=== PATIENT | female | born 1950 | race Caucasian/White ===

== ENCOUNTER 2018-10-01 19:32 | Outpatient (CLI) | payer MEDICARE, OTHER | END 2018-10-01 19:33 | disposition critical access hospital (66) | LOC: EMS 19:32 | PROVIDERS: ATTEND Surgery | DX: R13.10 Dysphagia, unspecified (principal) | CPT/HCPCS: A0425; A0427 ==

== ENCOUNTER 2018-10-01 19:59 | Emergency (ER) | payer MEDICARE, OTHER ==
[2018-10-01] MEDS ORDERED: SODIUM CHLORIDE 0.9% 1,000 ML IV ONE (20:42)
[2018-10-01] MEDS ORDERED: FAMOTIDINE 20 MG/2 ML VIAL IVP STA (20:42)
[2018-10-01] MEDS ORDERED: CETIRIZINE 10 MG TABLET PO STA (20:42)
[2018-10-01] MEDS ORDERED: FAMOTIDINE 20 MG/2 ML VIAL ONE (21:25)
[2018-10-01] MEDS ORDERED: diphenhydrAMINE INJ 50 MG/ML VIAL IVP STA (22:01)
--- NOTE | 2018-10-01 22:11 | ED Physician Documentation ---
PD HPI DYSPNEA - Stated complaint Stated Complaint: ALLERGIC REACTION - Chief complaint Chief Complaint: Allergic Rx - History obtained from History obtained from: Patient, EMS - History of Present Illness Timing - onset: How many minutes ago (30) Timing - onset during: Eating (She just started eating a pot sticker at [facility] restaurant in [place] and noted onset of tingling and swelling in her lips and mouth. She felt a little bit lightheaded. She started to feel some shortness of breath. 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 She was not aware of sesame in the pot stickers at that restaurant. EMS was called. She had increasing amounts of swelling in her lips and so used her EpiPen that she carries with her. EMS arrived and also gave her Benadryl and steroids. En route she is feeling slowly improving. She arise stating her swelling has improved by half or so. 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 denies: Cough GI: reports: Nausea. denies: Abdominal Pain, Vomiting, Diarrhea : denies: Dysuria, Frequency Neurologic: reports: Near syncope. denies: Focal weakness PD PAST MEDICAL HISTORY - Past Medical History Past Medical History: Yes Cardiovascular: Hypertension Respiratory: None Neuro: Migraines Endocrine/Autoimmune: None GI: GERD DOPE EDGER: None : None Psych: None Musculoskeletal: Osteoarthritis Derm: None - Past Surgical History Past Surgical History: Yes General: Hiatal hernia repair Ortho: Carpal Tunnel surgery /DOPE EDGER: section, Hysterectomy - Present Medications Home Medications: Ambulatory Orders Medication Instructions Recorded Confirmed Amitriptyline [Elavil] 100 mg PO HS 10/26/13 10/25/14 Cetirizine [ZyrTEC] 10 mg PO BID 10/26/13 10/25/14 Esomeprazole Magnesium [Nexium] 40 mg PO BID 10/26/13 10/25/14 Magnesium l-Lactate [Mag-Tab Sr] 500 mg PO BID 10/26/13 10/25/14 Topiramate 100 mg PO BID 10/26/13 10/25/14 Zolmitriptan [Zomig] 5 mg PO DAILY 10/26/13 10/25/14 Alprazolam [Xanax] 1 mg PO ONCE PRN 06/12/14 10/25/14 Butalbital/Aspirin/Caffeine 1 tab PO PRN 06/12/14 10/25/14 [Fiorinal 50-325-40 mg Capsule] Sumatriptan Inj [Imitrex Inj] 6 mg INJ PRN 06/12/14 10/25/14 Metoprolol Tartrate [Lopressor] 50 mg PO DAILY #10 tablet 10/25/14 hydroCHLOROthiazide 12.5 mg PO DAILY 10/25/14 10/25/14 [Hydrochlorothiazide] predniSONE [Deltasone] 40 mg PO DAILY 3 Days tablet 10/25/14 raNITIdine [Zantac] 150 mg PO DAILY 10/25/14 10/25/14 Albuterol Sulf [Ventolin Hfa 02/12/18 Inhaler] Amitriptyline HCl 100 mg PO 02/12/18 Atorvastatin Calcium 02/12/18 EPINEPHrine [Epipen 2-Haroon] 02/12/18 Fluticasone [Flonase] 02/12/18 02/12/18 Loratadine [Claritin] 02/12/18 Metoprolol Tartrate 02/12/18 Pantoprazole [Protonix] 02/12/18 SUMAtriptan [Imitrex] 02/12/18 Topiramate 02/12/18 amLODIPine [Norvasc] 02/12/18 raNITIdine [Zantac] 02/12/18 Cetirizine [ZyrTEC] 10 mg PO DAILY #15 tablet 10/01/18 Dexamethasone [Decadron] 4 mg PO DAILY #5 tablet 10/01/18 EPINEPHrine [Epinephrine] 0.3 mg IJ ONCE PRN #2 auto.injct 10/01/18 Famotidine 20 mg PO BID #20 tablet 10/01/18 - Allergies Allergies/Adverse Reactions: Allergies Allergy/AdvReac Type Severity Reaction Status Date / Time cefuroxime axetil * Allergy Severe Hives Verified 05/24/18 14:39 [From Ceftin] ibuprofen [From Motrin] Allergy Severe Hives Verified 05/24/18 14:39 Penicillins Allergy Severe Hives Verified 05/24/18 14:39 losartan potassium * Allergy Intermediate Rash Verified 05/24/18 14:39 [From Cozaar] vancomycin Allergy Intermediate Hives Verified 05/24/18 14:39 avocado Allergy Unknown Verified 10/01/18 20:21 bupropion [From Wellbutrin] Allergy Anxiety Verified 05/24/18 14:39 cashew nut Allergy Unknown Verified 10/01/18 20:21 cefuroxime [From Ceftin] Allergy Hives Verified 05/24/18 14:39 desipramine Allergy Hives Verified 05/24/18 14:39 hazelnut Allergy Unknown Verified 10/01/18 20:21 indomethacin Allergy Hives Verified 05/24/18 14:39 losartan [From Cozaar] Allergy Hives Verified 05/24/18 14:39 pecan nut Allergy Unknown Verified 10/01/18 20:21 sesame oil Allergy Anaphylaxis Verified 10/01/18 20:21 sesame seed Allergy Anaphylaxis Verified 10/01/18 20:21 bupropion HCl * AdvReac Severe Anxiety Verified 05/24/18 14:39 [From Wellbutrin] - Social History Does the pt smoke?: No Smoking Status: Never smoker Does the pt drink ETOH?: Yes Does the pt have substance abuse?: No - Immunizations Immunizations are current?: Yes - POLST Patient has POLST: No PD ED PE NORMAL - Vitals Vital signs reviewed: Yes - General General: Alert and oriented X 3, No acute distress (She does have some mild swelling of the lower lip and the jowls of the jaw and chin. There is some swelling of the uvula. The tongue does not appear to have swelling. She has a normal voice and is able to swallow. Neck is supple without any adenopathy. Lungs are clear. Heart is regular without a murmur or rub.), Well developed/nourished - Neck Neck: Supple, no meningeal sign, No adenopathy - Cardiac Cardiac: RRR, No murmur - Respiratory Respiratory: Clear bilaterally - Abdomen Abdomen: Soft, Non tender - Derm Derm: Normal color, Warm and dry, No rash - Extremities Extremities: Normal ROM s pain, No edema, No calf tenderness / cord - Neuro Neuro: Alert and oriented X 3, No motor deficit, Normal speech Results - Vitals Vitals: Vital Signs - 24 hr 10/01/18 10/01/18 10/01/18 19:56 21:20 22:16 Temperature 36.8 C Heart Rate 79 79 73 Respiratory 25 H 17 18 Rate Blood Pressure 179/89 H 146/83 H 143/74 H O2 Saturation 100 99 98 Oxygen O2 Source Room air PD MEDICAL DECISION MAKING - ED course Complexity details: re-evaluated patient (She is watched in the ER another couple of hours without any worsening of her swelling. She has a little bit of itch residual and given more Benadryl. She has had plenty of time for the epinephrine to wear off and does not seem to still be having the anaphylactic portion. She is discharged home.), considered differential, d/w patient Departure - Departure Disposition: Home, Self Care Clinical Impression: Anaphylaxis due to food Qualifiers: Encounter type: initial encounter Qualified Code(s): T78.00XA - Anaphylactic reaction due to unspecified food, initial encounter Condition: Stable Record reviewed to determine appropriate education?: Yes Instructions: ED Allergic React Food Follow-Up: SUGEY CHAUDHRY MD [Primary Care Provider] - Prescriptions: Cetirizine [ZyrTEC] 10 mg PO DAILY #15 tablet Dexamethasone [Decadron] 4 mg PO DAILY #5 tablet EPINEPHrine [Epinephrine] 0.3 mg IJ ONCE PRN #2 auto.injct PRN Reason: Anaphylaxis Famotidine 20 mg PO BID #20 tablet Comments: Stay well-hydrated at home. Continue Decadron steroid for a few days. Continue long-acting antihistamines with famotidine for stomach and cetirizine for skin daily for a few days. Add Benadryl if needed. I wrote refill prescriptions for your EpiPen. Discharge Date/Time: 10/01/18 22:41
[2018-10-01 22:17] VITALS: BP 143/74
== END 2018-10-01 22:41 | disposition home or self-care (01) ==
LOC: EDUNIT# → ED 19:59
DX: T78.09XA Anaphylactic reaction due to other food products, initial encounter (principal); Z91.018 Allergy to other foods; I10 Essential (primary) hypertension
CPT/HCPCS: 96361; 96374; 96375; 99283; A9270; J1200

== ENCOUNTER 2019-03-23 07:45 | Emergency (ER) | payer MEDICARE, OTHER ==
[2019-03-23] MEDS ORDERED: IPRATROPIUM/ALBUTEROL 3 ML NEB INH STA (08:24)
[2019-03-23] MEDS ORDERED: ONDANSETRON ODT 4 MG TABLET TL STA (08:25)
[2019-03-23] MEDS ORDERED: predniSONE 20 MG TABLET PO STA (08:25)
[2019-03-23] MEDS ORDERED: BUTALB/ACETAM/CAFF 50/325/40MG TABLET PO STA (08:25)
--- NOTE | 2019-03-23 08:37 | ED Physician Documentation ---
History of Present Illness - Stated complaint Stated Complaint: COUGH/VOMITING - Chief complaint Chief Complaint: Resp - History obtained from History obtained from: Patient, Family - History of Present Illness Timing: How many weeks ago (2) Pain level max: 5 Pain level now: 4 - Additonal information Additional information: 68-year-old female presents to the emergency department with coughing for the past 2 weeks. Saw her PCP and was placed on azithromycin 3 days ago. States she is not improving. No fevers. Clear sputum production. She does have an albuterol inhaler but no spacer. She does not smoke. She states she has had audible wheezing at home. Is not on steroids. Worse with lying down on ex ertion. Better sitting up. Review of Systems Constitutional: denies: Fever, Chills Nose: reports: Rhinorrhea / runny nose, Congestion Throat: denies: Sore throat Cardiac: denies: Chest pain / pressure Respiratory: reports: Dyspnea, Cough, Wheezing GI: denies: Abdominal Pain, Nausea, Vomiting, Diarrhea Skin: denies: Rash Musculoskeletal: denies: Neck pain, Back pain Neurologic: denies: Headache PD PAST MEDICAL HISTORY - Past Medical History Cardiovascular: Hypertension Respiratory: None Neuro: Migraines Endocrine/Autoimmune: None GI: GERD FRAMING INSPECTOR: None : None Psych: None Musculoskeletal: Osteoarthritis Derm: None - Past Surgical History Past Surgical History: Yes General: Hiatal hernia repair Ortho: Carpal Tunnel surgery /FRAMING INSPECTOR: section, Hysterectomy - Present Medications Home Medications: Ambulatory Orders Medication Instructions Recorded Confirmed Amitriptyline [Elavil] 100 mg PO HS 10/26/13 10/25/14 Cetirizine [ZyrTEC] 10 mg PO BID 10/26/13 10/25/14 Esomeprazole Magnesium [Nexium] 40 mg PO BID 10/26/13 10/25/14 Magnesium l-Lactate [Mag-Tab Sr] 500 mg PO BID 10/26/13 10/25/14 Topiramate 100 mg PO BID 10/26/13 10/25/14 Zolmitriptan [Zomig] 5 mg PO DAILY 10/26/13 10/25/14 Alprazolam [Xanax] 1 mg PO ONCE PRN 06/12/14 10/25/14 Butalbital/Aspirin/Caffeine 1 tab PO PRN 06/12/14 10/25/14 [Fiorinal 50-325-40 mg Capsule] Sumatriptan Inj [Imitrex Inj] 6 mg INJ PRN 06/12/14 10/25/14 Metoprolol Tartrate [Lopressor] 50 mg PO DAILY #10 tablet 10/25/14 hydroCHLOROthiazide 12.5 mg PO DAILY 10/25/14 10/25/14 [Hydrochlorothiazide] predniSONE [Deltasone] 40 mg PO DAILY 3 Days tablet 10/25/14 raNITIdine [Zantac] 150 mg PO DAILY 10/25/14 10/25/14 Albuterol Sulf [Ventolin Hfa 02/12/18 Inhaler] Amitriptyline HCl 100 mg PO 02/12/18 Atorvastatin Calcium 02/12/18 EPINEPHrine [Epipen 2-Haroon] 02/12/18 Fluticasone [Flonase] 02/12/18 02/12/18 Loratadine [Claritin] 02/12/18 Metoprolol Tartrate 02/12/18 Pantoprazole [Protonix] 02/12/18 SUMAtriptan [Imitrex] 02/12/18 Topiramate 02/12/18 amLODIPine [Norvasc] 02/12/18 raNITIdine [Zantac] 02/12/18 Cetirizine [ZyrTEC] 10 mg PO DAILY #15 tablet 10/01/18 EPINEPHrine [Epinephrine] 0.3 mg IJ ONCE PRN #2 auto.injct 10/01/18 Famotidine 20 mg PO BID #20 tablet 10/01/18 dexAMETHasone [Decadron] 4 mg PO DAILY #5 tablet 10/01/18 Benzonatate [Tessalon Perle] 100 - 200 mg PO TID PRN #30 capsule 03/23/19 Cetirizine HCl/Pseudoephedrine 1 each PO BID PRN #30 tab.er.12h 03/23/19 [Zyrtec-D Tablet] predniSONE [Prednisone] 40 mg PO DAILY #10 tablet 03/23/19 - Allergies Allergies/Adverse Reactions: Allergies Allergy/AdvReac Type Severity Reaction Status Date / Time cefuroxime axetil * Allergy Severe Hives Verified 03/23/19 08:02 [From Ceftin] ibuprofen [From Motrin] Allergy Severe Hives Verified 03/23/19 08:02 Penicillins Allergy Severe Hives Verified 03/23/19 08:02 losartan potassium * Allergy Intermediate Rash Verified 03/23/19 08:02 [From Cozaar] vancomycin Allergy Intermediate Hives Verified 03/23/19 08:02 avocado Allergy Unknown Verified 03/23/19 08:02 bupropion [From Wellbutrin] Allergy Anxiety Verified 03/23/19 08:02 cashew nut Allergy Unknown Verified 03/23/19 08:02 cefuroxime [From Ceftin] Allergy Hives Verified 03/23/19 08:02 desipramine Allergy Hives Verified 03/23/19 08:02 hazelnut Allergy Unknown Verified 03/23/19 08:02 indomethacin Allergy Hives Verified 03/23/19 08:02 losartan [From Cozaar] Allergy Hives Verified 03/23/19 08:02 pecan nut Allergy Unknown Verified 03/23/19 08:02 sesame oil Allergy Anaphylaxis Verified 03/23/19 08:02 sesame seed Allergy Anaphylaxis Verified 03/23/19 08:02 bupropion HCl * AdvReac Severe Anxiety Verified 03/23/19 08:02 [From Wellbutrin] - Social History Does the pt smoke?: No Smoking Status: Never smoker Does the pt drink ETOH?: Yes Does the pt have substance abuse?: No - Immunizations Immunizations are current?: Yes - POLST Patient has POLST: No PD ED PE NORMAL - Vitals Vital signs reviewed: Yes - General General: Alert and oriented X 3, No acute distress, Well developed/nourished - HEENT HEENT: PERRL, Ears normal, Moist mucous membranes, Pharynx benign - Neck Neck: Supple, no meningeal sign - Cardiac Cardiac: RRR, Strong equal pulses - Respiratory Respiratory: No respiratory distress, Other (Wheezing and diminished breath sounds bilaterally) - Abdomen Abdomen: Soft, Non tender, Non distended - Derm Derm: Warm and dry, No rash - Extremities Extremities: No edema - Neuro Neuro: Alert and oriented X 3 - Psych Psych: Normal mood, Normal affect Results - Vitals Vitals: Vital Signs - 24 hr 03/23/19 03/23/19 07:58 08:56 Temperature 36.6 C Heart Rate 96 91 Respiratory 18 18 Rate Blood Pressure 146/81 H O2 Saturation 96 Oxygen O2 Source Room air - Rads (name of study) cxr Radiology: Prelim report reviewed, EMP read contemporaneously, See rad report (No acute disease) PD MEDICAL DECISION MAKING - ED course Complexity details: reviewed results, re-evaluated patient, considered differential, d/w patient, d/w family ED course: Patient feels better after nebulizer treatment. No acute findings on chest x- ray. We will stop the azithromycin. Will place on a steroid taper. A spacer was given and teaching performed for her albuterol. She is well-appearing, nontoxic. Afebrile. No hypoxia. Patient counseled regarding signs and symptoms for which I believe and urgent re-evaluation would be necessary. Patient with good understanding of and agreement to plan and is comfortable going home at this time This document was made in part using voice recognition software. While efforts are made to proofread this document, sound alike and grammatical errors may occur. Departure - Departure Disposition: 01 Home, Self Care Clinical Impression: Viral URI with cough Condition: Good Instructions: ED URI Viral W Wheezing Follow-Up: SUGEY CHAUDHRY MD [Primary Care Provider] - Within 1 week Prescriptions: Benzonatate [Tessalon Perle] 100 - 200 mg PO TID PRN #30 capsule PRN Reason: Cough Cetirizine HCl/Pseudoephedrine [Zyrtec-D Tablet] 1 each PO BID PRN #30 tab.er.12h PRN Reason: nasal congestion predniSONE [Prednisone] 40 mg PO DAILY #10 tablet Comments: Use the medications as prescribed. Return if you worsen. Follow-up with your doctor for further evaluation and care. You can stop the azithromycin. Your x- ray does not show any acute abnormalities today.
--- NOTE | 2019-03-23 08:51 | XRAY Report ---
Reason: cough Procedure Date: 03/23/2019 Accession Number: [id number] / [id number] Procedure: XR - Chest 2 View X-Ray CPT Code: 62663 FULL RESULT: EXAM: CHEST RADIOGRAPHY, 2 VIEWS EXAM DATE: 03/23/2019 08:42 AM. CLINICAL HISTORY: 68-year-old female with cough for 3 weeks, with worsening symptoms. COMPARISON: None. TECHNIQUE: Upright PA and lateral views. FINDINGS: Lungs/Pleura: No focal opacities evident. No pleural effusion. No pneumothorax. Normal volumes. Mediastinum: Heart size normal, without adenopathy or pulmonary vascular congestion. Other: Trachea is midline. Osseous structures unremarkable for age. IMPRESSION: Unremarkable chest for age and body size. No pneumonia, CHF or other demonstrated cause for persistent cough. RADIA
[2019-03-23 09:28] VITALS: BP 151/86
[2019-03-23] MEDS ORDERED: KETOROLAC 60 MG/2 ML VIAL IM STA (09:33)
== END 2019-03-23 09:41 | disposition home or self-care (01) ==
LOC: ED 07:45
DX: J06.9 Acute upper respiratory infection, unspecified (principal); I10 Essential (primary) hypertension
CPT/HCPCS: 71046; 94640; 94664; 96372; 99283; A9270; J7512; Q0162

== ENCOUNTER 2019-05-17 11:03 | Emergency (ER) | payer MEDICARE, OTHER ==
--- NOTE | 2019-05-17 11:47 | ED Physician Documentation ---
PD HPI URI - Stated complaint Stated Complaint: SOA/COUGH/CONGESTION - Chief complaint Chief Complaint: Resp - History obtained from History obtained from: Patient - History of Present Illness Timing - onset: How many days ago (4-5 days worse, but has had some cough for about 6 weeks.) Timing duration: Days Timing details: Abrupt onset, Still present Associated symptoms: Fever, Nasal congestion, Productive cough, Dyspnea, Other (she is concerned about mold found in their house and if this could be causing cough.). No: NVD Contributing factors: No: Sick contact, COPD / asthma Similar symptoms before: Has not had sx before Review of Systems Constitutional: reports: Fever Nose: reports: Congestion. denies: Rhinorrhea / runny nose Throat: denies: Sore throat Cardiac: denies: Chest pain / pressure, Palpitations Respiratory: reports: Dyspnea, Cough. 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: None : None Psych: None Musculoskeletal: Osteoarthritis Derm: None - Past Surgical History Past Surgical History: Yes General: Hiatal hernia repair Ortho: Carpal Tunnel surgery /PROFESSOR OF LITERACY: section, Hysterectomy - Present Medications Home Medications: Ambulatory Orders Medication Instructions Recorded Confirmed Amitriptyline [Elavil] 100 mg PO HS 10/26/13 10/25/14 Cetirizine [ZyrTEC] 10 mg PO BID 10/26/13 10/25/14 Esomeprazole Magnesium [Nexium] 40 mg PO BID 10/26/13 10/25/14 Magnesium l-Lactate [Mag-Tab Sr] 500 mg PO BID 10/26/13 10/25/14 Topiramate 100 mg PO BID 10/26/13 10/25/14 Zolmitriptan [Zomig] 5 mg PO DAILY 10/26/13 10/25/14 Alprazolam [Xanax] 1 mg PO ONCE PRN 06/12/14 10/25/14 Butalbital/Aspirin/Caffeine 1 tab PO PRN 06/12/14 10/25/14 [Fiorinal 50-325-40 mg Capsule] Sumatriptan Inj [Imitrex Inj] 6 mg INJ PRN 06/12/14 10/25/14 Metoprolol Tartrate [Lopressor] 50 mg PO DAILY #10 tablet 10/25/14 hydroCHLOROthiazide 12.5 mg PO DAILY 10/25/14 10/25/14 [Hydrochlorothiazide] predniSONE [Deltasone] 40 mg PO DAILY 3 Days tablet 10/25/14 raNITIdine [Zantac] 150 mg PO DAILY 10/25/14 10/25/14 Albuterol Sulf [Ventolin Hfa 02/12/18 Inhaler] Amitriptyline HCl 100 mg PO 02/12/18 Atorvastatin Calcium 02/12/18 EPINEPHrine [Epipen 2-Haroon] 02/12/18 Fluticasone [Flonase] 02/12/18 02/12/18 Loratadine [Claritin] 02/12/18 Metoprolol Tartrate 02/12/18 Pantoprazole [Protonix] 02/12/18 SUMAtriptan [Imitrex] 02/12/18 Topiramate 02/12/18 amLODIPine [Norvasc] 02/12/18 raNITIdine [Zantac] 02/12/18 Cetirizine [ZyrTEC] 10 mg PO DAILY #15 tablet 10/01/18 EPINEPHrine [Epinephrine] 0.3 mg IJ ONCE PRN #2 auto.injct 10/01/18 Famotidine 20 mg PO BID #20 tablet 10/01/18 dexAMETHasone [Decadron] 4 mg PO DAILY #5 tablet 10/01/18 Benzonatate [Tessalon Perle] 100 - 200 mg PO TID PRN #30 capsule 03/23/19 Cetirizine HCl/Pseudoephedrine 1 each PO BID PRN #30 tab.er.12h 03/23/19 [Zyrtec-D Tablet] predniSONE [Prednisone] 40 mg PO DAILY #10 tablet 03/23/19 Albuterol Sulf [Ventolin Hfa 1 - 2 puffs INH Q4HR PRN #1 inhaler 05/17/19 Inhaler] Benzonatate [Tessalon Perle] 100 - 200 mg PO TID PRN #30 capsule 05/17/19 Doxycycline Monohydrate 100 mg PO BID #14 tablet 05/17/19 dexAMETHasone [Decadron] 4 mg PO DAILY #7 tablet 05/17/19 - Allergies Allergies/Adverse Reactions: Allergies Allergy/AdvReac Type Severity Reaction Status Date / Time cefuroxime axetil * Allergy Severe Hives Verified 05/17/19 11:16 [From Ceftin] ibuprofen [From Motrin] Allergy Severe Hives Verified 05/17/19 11:16 Penicillins Allergy Severe Hives Verified 05/17/19 11:16 losartan potassium * Allergy Intermediate Rash Verified 05/17/19 11:16 [From Cozaar] vancomycin Allergy Intermediate Hives Verified 05/17/19 11:16 avocado Allergy Unknown Verified 05/17/19 11:16 cashew nut Allergy Unknown Verified 05/17/19 11:16 desipramine Allergy Hives Verified 05/17/19 11:16 hazelnut Allergy Unknown Verified 05/17/19 11:16 indomethacin Allergy Hives Verified 05/17/19 11:16 losartan [From Cozaar] Allergy Hives Verified 05/17/19 11:16 pecan nut Allergy Unknown Verified 05/17/19 11:16 sesame oil Allergy Anaphylaxis Verified 05/17/19 11:16 sesame seed Allergy Anaphylaxis Verified 05/17/19 11:16 bupropion HCl * AdvReac Severe Anxiety Verified 05/17/19 11:16 [From Wellbutrin] - Social History Does the pt smoke?: No Smoking Status: Never smoker Does the pt drink ETOH?: Yes Does the pt have substance abuse?: No - Immunizations Immunizations are current?: Yes - POLST Patient has POLST: No PD ED PE NORMAL - Vitals Vital signs reviewed: Yes - General General: Alert and oriented X 3, No acute distress, Well developed/nourished - HEENT HEENT: Moist mucous membranes, Pharynx benign - Neck Neck: Supple, no meningeal sign, No adenopathy - Cardiac Cardiac: RRR, No murmur - Respiratory Respiratory: No: Clear bilaterally (wheezing noted siffusely, mild. Some coarse sounds left perihilar. No fine crackles. ) - Derm Derm: Normal color, Warm and dry - Extremities Extremities: No tenderness to palpate, Normal ROM s pain, No edema, No calf tenderness / cord - Neuro Neuro: Alert and oriented X 3, No motor deficit, Normal speech Results - Vitals Vitals: Vital Signs - 24 hr 05/17/19 05/17/19 05/17/19 11:07 12:14 12:38 Temperature 36.6 C Heart Rate 69 59 L 70 Respiratory 20 20 14 Rate Blood Pressure 134/68 H 146/78 H O2 Saturation 100 94 05/17/19 14:19 Temperature Heart Rate 78 Respiratory 14 Rate Blood Pressure 144/82 H O2 Saturation 98 Oxygen O2 Source Room air - Labs Labs: Laboratory Tests 05/17/19 12:05 Influenza A (Rapid) Negative Influenza B (Rapid) Negative - Rads (name of study) chest xray Radiology: Prelim report reviewed (no infiltrates), See rad report PD MEDICAL DECISION MAKING - ED course Complexity details: reviewed results, considered differential, d/w patient Departure - Departure Disposition: 01 Home, Self Care Clinical Impression: Acute bronchitis Qualifiers: Bronchitis organism: unspecified organism Qualified Code(s): J20.9 - Acute bronchitis, unspecified Condition: Stable Record reviewed to determine appropriate education?: Yes Instructions: ED Upper Resp Infec Abx Tx Follow-Up: SUGEY CHAUDHRY MD [Primary Care Provider] - Prescriptions: Albuterol Sulf [Ventolin Hfa Inhaler] 1 - 2 puffs INH Q4HR PRN #1 inhaler PRN Reason: Shortness Of Air/Wheezing Benzonatate [Tessalon Perle] 100 - 200 mg PO TID PRN #30 capsule PRN Reason: Cough dexAMETHasone [Decadron] 4 mg PO DAILY #7 tablet Doxycycline Monohydrate 100 mg PO BID #14 tablet Comments: Continue usual medications. Use your albuterol inhaler 2 puffs 4 times a day regularly for the next 7 to 10 days and added times if needed for cough and wheezing. Decadron steroid for inflammation of the airways daily for a week. Add Tessalon (benzonatate) as needed for cough. This may be a viral illness or possibly bacterial infection instead so given your symptoms will add an antibiotic as well. Doxycycline twice daily for a week. Recheck if not improving well over the next several days; return sooner if worse . Discharge Date/Time: 05/17/19 14:20
[2019-05-17] MEDS ORDERED: CHERRY SYRUP 10 ML UDC PO ONE (12:11)
[2019-05-17] MEDS ORDERED: BENZONATATE 100 MG CAPSULE PO STA (12:11)
[2019-05-17] MEDS ORDERED: KETOROLAC 30 MG/ML VIAL IM STA (12:11)
[2019-05-17] MEDS ORDERED: DEXAMETHASONE 10 MG/ML VIAL PO STA (12:11)
[2019-05-17] MEDS ORDERED: IPRATROPIUM/ALBUTEROL 3 ML NEB INH STA (12:11)
[2019-05-17] MEDS ORDERED: DOXYCYCLINE 100 MG TABLET PO STA (12:14)
--- NOTE | 2019-05-17 12:54 | XRAY Report ---
Reason: cough and congestion/ dyspnea Procedure Date: 05/17/2019 Accession Number: [id number] / [id number] Procedure: XR - Chest 2 View X-Ray CPT Code: 69333 Final Report FULL RESULT: EXAM: CHEST RADIOGRAPHY EXAM DATE: 05/17/2019 12:16 PM. CLINICAL HISTORY: Cough and congestion/ dyspnea. COMPARISON: CHEST 2 VIEW 03/23/2019 8:32 AM. TECHNIQUE: 2 views. FINDINGS: Lungs/Pleura: No new focal lung consolidation or pleural effusions. No pneumothorax. Minimal linear basilar probable atelectasis/scarring. Minimal bronchial wall thickening centrally. Mediastinum: Cardiac silhouette size appears unremarkable. Other: Degenerative change within the spine. IMPRESSION: 1. Minimal bronchial wall thickening centrally, suggesting mild airways disease. 2. No new lobar lung consolidation or pleural effusions. Minimal basilar probable atelectasis/scarring. RADIA
[2019-05-17 14:20] VITALS: BP 144/82
== END 2019-05-17 14:20 | disposition home or self-care (01) ==
LOC: ED 11:03
DX: J20.9 Acute bronchitis, unspecified (principal); I10 Essential (primary) hypertension
CPT/HCPCS: 71046; 87102; 87106; 87206; 87275; 87276; 94640; 96372; 99283; 99284; A9270

== ENCOUNTER 2019-08-05 15:36 | Emergency (ER) | payer MEDICARE, OTHER ==
[2019-08-05] MEDS ORDERED: CLINDAMYCIN 900 MG/50 ML 50 ML IV ONE (15:49)
--- NOTE | 2019-08-05 15:52 | ED Physician Documentation ---
History of Present Illness - Stated complaint Stated Complaint: DOG BITE/L HAND - Chief complaint Chief Complaint: Laceration - History obtained from History obtained from: Patient - History of Present Illness Timing: How many hours ago (10) Pain level max: 3 Pain level now: 2 - Additonal information Additional information: 69-year-old female was bitten in the left hand by a dog this morning. It is her spouse's dog. She noticed redness and swelling to the hand this afternoon. No fevers. There was clear drainage from the wound. Nothing makes it better or worse. Tetanus is up-to-date. Patient is right-handed. The dog is up-to-date on its immunizations as well. 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 : None Psych: None Musculoskeletal: Osteoarthritis Derm: None - Past Surgical History Past Surgical History: Yes General: Hiatal hernia repair Ortho: Carpal Tunnel surgery /FARMWORKER PULLET FARM: section, Hysterectomy - Present Medications Home Medications: Ambulatory Orders Medication Instructions Recorded Confirmed Amitriptyline [Elavil] 100 mg PO HS 10/26/13 10/25/14 Cetirizine [ZyrTEC] 10 mg PO BID 10/26/13 10/25/14 Esomeprazole Magnesium [Nexium] 40 mg PO BID 10/26/13 10/25/14 Magnesium l-Lactate [Mag-Tab Sr] 500 mg PO BID 10/26/13 10/25/14 Topiramate 100 mg PO BID 10/26/13 10/25/14 Zolmitriptan [Zomig] 5 mg PO DAILY 10/26/13 10/25/14 Alprazolam [Xanax] 1 mg PO ONCE PRN 06/12/14 10/25/14 Butalbital/Aspirin/Caffeine 1 tab PO PRN 06/12/14 10/25/14 [Fiorinal 50-325-40 mg Capsule] Sumatriptan Inj [Imitrex Inj] 6 mg INJ PRN 06/12/14 10/25/14 Metoprolol Tartrate [Lopressor] 50 mg PO DAILY #10 tablet 10/25/14 hydroCHLOROthiazide 12.5 mg PO DAILY 10/25/14 10/25/14 [Hydrochlorothiazide] predniSONE [Deltasone] 40 mg PO DAILY 3 Days tablet 10/25/14 raNITIdine [Zantac] 150 mg PO DAILY 10/25/14 10/25/14 Albuterol Sulf [Ventolin Hfa 02/12/18 Inhaler] Amitriptyline HCl 100 mg PO 02/12/18 Atorvastatin Calcium 02/12/18 EPINEPHrine [Epipen 2-Haroon] 02/12/18 Fluticasone [Flonase] 02/12/18 02/12/18 Loratadine [Claritin] 02/12/18 Metoprolol Tartrate 02/12/18 Pantoprazole [Protonix] 02/12/18 SUMAtriptan [Imitrex] 02/12/18 Topiramate 02/12/18 amLODIPine [Norvasc] 02/12/18 raNITIdine [Zantac] 02/12/18 Cetirizine [ZyrTEC] 10 mg PO DAILY #15 tablet 10/01/18 EPINEPHrine [Epinephrine] 0.3 mg IJ ONCE PRN #2 auto.injct 10/01/18 Famotidine 20 mg PO BID #20 tablet 10/01/18 dexAMETHasone [Decadron] 4 mg PO DAILY #5 tablet 10/01/18 Benzonatate [Tessalon Perle] 100 - 200 mg PO TID PRN #30 capsule 03/23/19 Cetirizine HCl/Pseudoephedrine 1 each PO BID PRN #30 tab.er.12h 03/23/19 [Zyrtec-D Tablet] predniSONE [Prednisone] 40 mg PO DAILY #10 tablet 03/23/19 Albuterol Sulf [Ventolin Hfa 1 - 2 puffs INH Q4HR PRN #1 inhaler 05/17/19 Inhaler] Benzonatate [Tessalon Perle] 100 - 200 mg PO TID PRN #30 capsule 05/17/19 Doxycycline Monohydrate 100 mg PO BID #14 tablet 05/17/19 dexAMETHasone [Decadron] 4 mg PO DAILY #7 tablet 05/17/19 Clindamycin HCl [Clindamycin 300MG 300 mg PO Q6H #40 capsule 08/05/19 CAP] - Allergies Allergies/Adverse Reactions: Allergies Allergy/AdvReac Type Severity Reaction Status Date / Time cefuroxime axetil * Allergy Severe Hives Verified 05/17/19 11:16 [From Ceftin] ibuprofen [From Motrin] Allergy Severe Hives Verified 05/17/19 11:16 Penicillins Allergy Severe Hives Verified 05/17/19 11:16 losartan potassium * Allergy Intermediate Rash Verified 05/17/19 11:16 [From Cozaar] vancomycin Allergy Intermediate Hives Verified 05/17/19 11:16 avocado Allergy Unknown Verified 08/05/19 15:39 cashew nut Allergy Unknown Verified 08/05/19 15:39 desipramine Allergy Hives Verified 08/05/19 15:39 hazelnut Allergy Unknown Verified 08/05/19 15:39 indomethacin Allergy Hives Verified 08/05/19 15:39 losartan [From Cozaar] Allergy Hives Verified 08/05/19 15:39 pecan nut Allergy Unknown Verified 08/05/19 15:39 sesame oil Allergy Anaphylaxis Verified 08/05/19 15:39 sesame seed Allergy Anaphylaxis Verified 08/05/19 15:39 bupropion HCl * AdvReac Severe Anxiety Verified 08/05/19 15:39 [From Wellbutrin] - Social History Does the pt smoke?: No Smoking Status: Never smoker Does the pt drink ETOH?: Yes Does the pt have substance abuse?: No - Immunizations Immunizations are current?: Yes - POLST Patient has POLST: No PD ED PE NORMAL - Vitals Vital signs reviewed: Yes - General General: Alert and oriented X 3, No acute distress - HEENT HEENT: Moist mucous membranes - Derm Derm: Warm and dry - Extremities Extremities: Other (L hand - Swelling and erythema to the webspace of the left hand in between the thumb and index finger. No swelling or tenderness on the palmar aspect of the hand. No erythematous streaking. No drainage. The area of erythema is approximately 5 x 7 cm. No crepitus. Neurovascular intact.) - Neuro Neuro: Alert and oriented X 3 Results - Vitals Vitals: Vital Signs - 24 hr 08/05/19 15:39 Temperature 36.3 C L Heart Rate 68 Respiratory 16 Rate Blood Pressure 144/89 H O2 Saturation 100 Oxygen O2 Source Room air PD MEDICAL DECISION MAKING - ED course Complexity details: considered differential, d/w patient, d/w family ED course: Patient with a dog bite to the left hand. There appears to be cellulitis and infection starting. Given an IV dose of clindamycin. Will place on oral clindamycin for home. She is allergic to penicillins and cephalosporins. Wound edges were marked. Patient and family counseled regarding signs and symptoms f or which I believe and urgent re-evaluation would be necessary. Patient with good understanding of and agreement to plan and is comfortable going home at this time This document was made in part using voice recognition software. While efforts are made to proofread this document, sound alike and grammatical errors may occur. Departure - Departure Disposition: Home, Self Care Clinical Impression: Dog bite Qualifiers: Encounter type: initial encounter Qualified Code(s): W54.0XXA - Bitten by dog, initial encounter Condition: Good Instructions: ED Bite Animal General Follow-Up: SUGEY CHAUDHRY MD [Primary Care Provider] - Within 3 Days Prescriptions: Clindamycin HCl [Clindamycin 300MG CAP] 300 mg PO Q6H #40 capsule Comments: Take all antibiotics until gone. Return if you worsen. Return if you notice redness or streaking going up the arm or if you are failing to improve. Also return if you develop fevers.
[2019-08-05] MEDS ORDERED: TETANUS/DIPHTHERIA/PERTUSSIS 0.5 ML SYRINGE IM ONE (16:09)
[2019-08-05 17:02] VITALS: BP 166/94
== END 2019-08-05 17:02 | disposition home or self-care (01) ==
LOC: ED 15:36
DX: S61.452A Open bite of left hand, initial encounter (principal); W54.0XXA Bitten by dog, initial encounter; I10 Essential (primary) hypertension
CPT/HCPCS: 90471; 96365; 99285

== ENCOUNTER 2019-08-05 21:51 | Inpatient (IN) | payer MEDICARE, OTHER ==
--- NOTE | 2019-08-05 22:08 | ED Physician Documentation ---
PD HPI WOUND RECHECK - Stated complaint Stated Complaint: DOG BITE/ L HAND, FEVER - Chief complaint Chief Complaint: Wound - Histroy obtained from History obtained from: Patient (The patient is a 69-year-old female who was bitten by her own dog, the dog is up-to-date on all of its immunizations and vaccinations she was seen earlier today and received a tetanus shot as well as IV clindamycin she returns tonight with fevers worsening pain, swelling, redness, extending redness from the hand up to the left arm.) Review of Systems Constitutional: reports: Fever Eyes: reports: Reviewed and negative Ears: reports: Reviewed and negative Nose: reports: Reviewed and negative Throat: reports: Reviewed and negative Cardiac: reports: Reviewed and negative Respiratory: reports: Reviewed and negative GI: reports: Reviewed and negative : reports: Reviewed and negative Skin: reports: Other (Cellulitis of the left hand) Musculoskeletal: reports: Extremity pain, Extremity swelling, Other (Redness and swelling of the left hand extending to the left upper extremity) Neurologic: reports: Reviewed and negative Psychiatric: reports: Reviewed and negative Endocrine: reports: Reviewed and negative Immunocompromised: reports: Reviewed and negative PD PAST MEDICAL HISTORY - Past Medical History Cardiovascular: Hypertension Respiratory: None Neuro: Migraines Endocrine/Autoimmune: None GI: GERD PROOF INSPECTOR: None : None Psych: None Musculoskeletal: Osteoarthritis Derm: None - Past Surgical History Past Surgical History: Yes General: Hiatal hernia repair Ortho: Carpal Tunnel surgery /PROOF INSPECTOR: section, Hysterectomy - Present Medications Home Medications: Ambulatory Orders Medication Instructions Recorded Confirmed Cetirizine [ZyrTEC] 10 mg PO BID 10/26/13 10/25/14 Topiramate 100 mg PO BID 10/26/13 10/25/14 Zolmitriptan [Zomig] 5 mg PO DAILY 10/26/13 10/25/14 Alprazolam [Xanax] 1 mg PO ONCE PRN 06/12/14 10/25/14 Butalbital/Aspirin/Caffeine 1 tab PO PRN 06/12/14 10/25/14 [Fiorinal 50-325-40 mg Capsule] Sumatriptan Inj [Imitrex Inj] 6 mg INJ PRN 06/12/14 10/25/14 hydroCHLOROthiazide 12.5 mg PO DAILY 10/25/14 10/25/14 [Hydrochlorothiazide] raNITIdine [Zantac] 150 mg PO DAILY 10/25/14 10/25/14 Albuterol Sulf [Ventolin Hfa 02/12/18 Inhaler] Amitriptyline HCl 100 mg PO 02/12/18 Atorvastatin Calcium 02/12/18 EPINEPHrine [Epipen 2-Haroon] 02/12/18 Fluticasone [Flonase] 02/12/18 02/12/18 Loratadine [Claritin] 02/12/18 Metoprolol Tartrate 02/12/18 Pantoprazole [Protonix] 02/12/18 SUMAtriptan [Imitrex] 02/12/18 amLODIPine [Norvasc] 02/12/18 Clindamycin HCl [Clindamycin 300MG 300 mg PO Q6H #40 capsule 08/05/19 CAP] - Allergies Allergies/Adverse Reactions: Allergies Allergy/AdvReac Type Severity Reaction Status Date / Time cefuroxime axetil * Allergy Severe Hives Verified 08/05/19 22:02 [From Ceftin] ibuprofen [From Motrin] Allergy Severe Hives Verified 08/05/19 22:02 Penicillins Allergy Severe Hives Verified 08/05/19 22:02 losartan potassium * Allergy Intermediate Rash Verified 08/05/19 22:02 [From Cozaar] vancomycin Allergy Intermediate Hives Verified 08/05/19 22:02 avocado Allergy Unknown Verified 08/05/19 22:02 cashew nut Allergy Unknown Verified 08/05/19 22:02 desipramine Allergy Hives Verified 08/05/19 22:02 hazelnut Allergy Unknown Verified 08/05/19 22:02 indomethacin Allergy Hives Verified 08/05/19 22:02 losartan [From Cozaar] Allergy Hives Verified 08/05/19 22:02 pecan nut Allergy Unknown Verified 08/05/19 22:02 sesame oil Allergy Anaphylaxis Verified 08/05/19 22:02 sesame seed Allergy Anaphylaxis Verified 08/05/19 22:02 bupropion HCl * AdvReac Severe Anxiety Verified 08/05/19 22:02 [From Wellbutrin] - Social History Does the pt smoke?: No Smoking Status: Never smoker Does the pt drink ETOH?: Yes Does the pt have substance abuse?: No - Immunizations Immunizations are current?: Yes - POLST Patient has POLST: No PD ED PE NORMAL - Vitals Vital signs reviewed: Yes - General General: Alert and oriented X 3, No acute distress, Well developed/nourished - HEENT HEENT: Atraumatic, PERRL, Pharynx benign - Neck Neck: Supple, no meningeal sign, No JVD - Cardiac Cardiac: RRR, Strong equal pulses - Respiratory Respiratory: No respiratory distress, Clear bilaterally - Abdomen Abdomen: Normal bowel sounds, Soft, Non tender, Non distended - Derm Derm: Other (There is swelling and redness to the left hand the hand was marked previously on the borders of the surrounding erythema the erythema has since spread diffusely of the right hand and now spreading up her arm. There is no axillary lymphadenopathy her radian, median, ulnar motor and sensory exam are intact compartments are soft there is no crepitus.Neurovascularly the hand is intact sensations intact light touch cap refill less than 2 seconds.) - Extremities Extremities: No deformity, Other (There is swelling and redness to the left hand the hand was marked previously on the borders of the surrounding erythema the erythema has since spread diffusely of the right hand and now spreading up her arm. There is no axillary lymphadenopathy her radian, median, ulnar motor and sensory exam are intact compartments are soft there is no crepitus.Neurovascularly the hand is intact sensations intact light touch cap refill less than 2 seconds.) - Neuro Neuro: Alert and oriented X 3 - Psych Psych: Normal mood, Normal affect Results - Vitals Vitals: Vital Signs - 24 hr 08/05/19 21:55 Temperature 37.1 C Heart Rate 72 Respiratory 20 Rate Blood Pressure 150/76 H O2 Saturation 100 Oxygen O2 Source Room air - Labs Labs: Laboratory Tests 08/05/19 08/05/19 08/05/19 22:12 22:12 22:12 WBC 14.4 H RBC 4.06 L Hgb 12.7 Hct 38.9 MCV 95.8 MCH 31.3 H MCHC 32.6 RDW 12.9 Plt Count 260 MPV 9.7 Neut # (Auto) 11.6 H Lymph # (Auto) 1.3 L Tift # (Auto) 0.8 Eos # (Auto) 0.7 Baso # (Auto) 0.1 Absolute Nucleated RBC 0.00 Nucleated RBC % 0.0 PT INR APTT Sodium 138 Potassium 3.4 L Chloride 104 Carbon Dioxide 24 Anion Gap 10.0 BUN 17 Creatinine 1.0 Estimated GFR (MDRD) 55 L Glucose 108 H Lactic Acid Calcium 9.3 Total Bilirubin 0.2 AST 30 ALT 23 Alkaline Phosphatase 91 Lactate Dehydrogenase 186 Total Protein 8.4 H Albumin 4.6 Globulin 3.8 Albumin/Globulin Ratio 1.2 Lipase 34 08/05/19 08/05/19 22:12 22:12 WBC RBC Hgb Hct MCV MCH MCHC RDW Plt Count MPV Neut # (Auto) Lymph # (Auto) Tift # (Auto) Eos # (Auto) Baso # (Auto) Absolute Nucleated RBC Nucleated RBC % PT 11.1 INR 1.0 APTT 28.0 Sodium Potassium Chloride Carbon Dioxide Anion Gap BUN Creatinine Estimated GFR (MDRD) Glucose Lactic Acid 0.8 Calcium Total Bilirubin AST ALT Alkaline Phosphatase Lactate Dehydrogenase Total Protein Albumin Globulin Albumin/Globulin Ratio Lipase PD MEDICAL DECISION MAKING - Consults Consults: Consulted (name), Discussed case with (DR MOODY RAMIREZ), Request network relations consultant evaluate patient (23:07), Request network relations consultant admit patient (23:07) Departure - Departure Disposition: ED Place in Observation Clinical Impression: Cellulitis of left hand Dog bite of left hand with infection Qualifiers: Encounter type: subsequent encounter Qualified Code(s): S61.452D - Open bite of left hand, subsequent encounter Condition: Fair Discharge Date/Time: 08/06/19 00:10
[2019-08-05 22:23] LABS: BASOPHILS # (AUTO) 0.1 10^3/uL (0.0-0.1); BASOPHILS % (AUTO) 0.5 %; EOSINOPHILS # (AUTO) 0.7 10^3/uL (0.0-0.7); EOSINOPHILS % (AUTO) 4.6 %; HGB - HEMOGLOBIN 12.7 g/dL (12.0-16.0); LYMPHOCYTES # (AUTO) 1.3 10^3/uL (1.5-3.5); LYMPHOCYTES % (AUTO) 8.7 %; MEAN CORPUSCULAR HEMOGLOBIN 31.3 pg (27.0-31.0); MEAN CORPUSCULAR HGB CONC 32.6 g/dL (32.0-36.0); MEAN CORPUSCULAR VOLUME 95.8 fL (81.0-99.0); MEAN PLATELET VOLUME 9.7 fL (7.9-10.8); MONOCYTES # (AUTO) 0.8 10^3/uL (0.0-1.0); MONOCYTES % (AUTO) 5.2 %; NEUTROPHILS # (AUTO) 11.6 10^3/uL (1.5-6.6); NEUTROPHILS % (AUTO) 80.4 %; PLT - PLATELET COUNT 260 10^3/uL (130-450); RED BLOOD COUNT 4.06 10^6/uL (4.20-5.40); RED CELL DISTRIBUTION WIDTH 12.9 % (12.0-15.0); WHITE BLOOD COUNT 14.4 x10^3/uL (4.8-10.8)
[2019-08-05] MEDS ORDERED: AMPICILLIN/SULBACTAM 3 GM in SODIUM CHLORIDE 0.9% MINIBAG 100 ML IV STA (22:28)
[2019-08-05] MEDS ORDERED: diphenhydrAMINE INJ 50 MG/ML VIAL IVP STA (22:28)
[2019-08-05] MEDS ORDERED: VANCOMYCIN INJ 1 GM in SODIUM CHLORIDE 0.9% 500 ML IV STA (22:30)
[2019-08-05 22:33] LABS: ALBUMIN 4.6 g/dL (3.2-5.5); ALBUMIN/GLOBULIN RATIO 1.2 (1.0-2.2); BILIRUBIN,TOTAL 0.2 mg/dL (0.2-1.0); CALCIUM 9.3 mg/dL (8.5-10.3); PT - PROTHROMBIN TIME 11.1 secs (9.9-12.6); TOTAL PROTEIN 8.4 g/dL (6.7-8.2)
[2019-08-05] MEDS ORDERED: MORPHINE 2 MG/ML CARPUJECT IVP STA (22:33)
[2019-08-05] MEDS ORDERED: ONDANSETRON 4 MG/2 ML VIAL IVP STA (22:33)
--- NOTE | 2019-08-05 23:24 | XRAY Report ---
Reason: dog bite Procedure Date: 08/05/2019 Accession Number: [id number] / [id number] Procedure: XR - Hand 3 View LT CPT Code: Final Report FULL RESULT: EXAM: LEFT HAND RADIOGRAPHY EXAM DATE: 08/05/2019 10:50 PM. CLINICAL HISTORY: Dog bite. COMPARISON: None. TECHNIQUE: 3 views. FINDINGS: Bones: Osteopenia. No acute fracture seen. Trapezium is absent. Joints: No dislocation seen. Mild degenerative changes in the hand and wrist. Soft Tissues: Soft tissue swelling. No radiopaque foreign body identified. IMPRESSION: 1. Soft tissue swelling. No fracture or foreign body seen. 2. Degenerative changes in the hand and wrist. 3. Trapezium is absent. RADIA
--- NOTE | 2019-08-06 | HISTORY & PHYSICAL EXAMINATION ---
Chief Complaint - Chief Complaint Chief Complaint: left hand sweling and redness, dog bite History of Present Illness - Admitted From Admitted From:: [facility] - History Obtained From Records Reviewed: yes History obtained from: patient - History of Present Illness HPI Comment/Other: Patient is a 69 y/o female who presented to the ED with left hand swelling, redness and pain. She was bitten by her 's dog today morning. It is a 17 y/o dog. It had gone out of the house and got confused. on trying to return it went to the neighbors house. She was trying to get the dog back to their house so she tried to lift the dog when it nipped at her hand. She was seen in the ED earlier in the day and was given a dose of clindamycin and a tetanus shot. She was discharged home with a prescription of clindamycin and would have been due for her next dose by 10pm. However the redness increased beyond the demarcated borders, she started shivering and experiencing more pain in the area so she presented to the ED around 9pm. She had a WBC of 14. As a result of the worsening redness, she was presented for admission. She denied chest pain, dyspnea, abdominal pain, nausea or vomiting. History - Past Medical History Cardiovascular: reports: Hypertension, High cholesterol Respiratory: reports: None Neuro: reports: Migraines Endocrine/Autoimmune: reports: HyPOthyroidism GI: reports: GERD MILLER HELPER DISTILLERY: reports: None : reports: None Psych: reports: None Musculoskeletal: reports: Osteoarthritis Derm: reports: None MRSA Hx?: No - Past Surgical History General: reports: Appendectomy, Hiatal hernia repair Ortho: reports: Carpal Tunnel surgery, Other (bunionectomy) /MILLER HELPER DISTILLERY: reports: section, Hysterectomy - Family & Social History Family History: Mother: CAD, Cancer (breast cancer) Living arrangement: At home Living Situation: With spouse/s.o. Social History Notes: She denied tobacco use, alcohol or illicit drug use. - POLST Patient has POLST: No POLST Status: Full Code Meds/Allgy - Home Medications Home Medications: Ambulatory Orders Medication Instructions Recorded Confirmed Amitriptyline [Elavil] 100 mg PO HS 10/26/13 10/25/14 Cetirizine [ZyrTEC] 10 mg PO BID 10/26/13 10/25/14 Esomeprazole Magnesium [Nexium] 40 mg PO BID 10/26/13 10/25/14 Magnesium l-Lactate [Mag-Tab Sr] 500 mg PO BID 10/26/13 10/25/14 Topiramate 100 mg PO BID 10/26/13 10/25/14 Zolmitriptan [Zomig] 5 mg PO DAILY 10/26/13 10/25/14 Alprazolam [Xanax] 1 mg PO ONCE PRN 06/12/14 10/25/14 Butalbital/Aspirin/Caffeine 1 tab PO PRN 06/12/14 10/25/14 [Fiorinal 50-325-40 mg Capsule] Sumatriptan Inj [Imitrex Inj] 6 mg INJ PRN 06/12/14 10/25/14 Metoprolol Tartrate [Lopressor] 50 mg PO DAILY #10 tablet 10/25/14 hydroCHLOROthiazide 12.5 mg PO DAILY 10/25/14 10/25/14 [Hydrochlorothiazide] predniSONE [Deltasone] 40 mg PO DAILY 3 Days tablet 10/25/14 raNITIdine [Zantac] 150 mg PO DAILY 10/25/14 10/25/14 Albuterol Sulf [Ventolin Hfa 02/12/18 Inhaler] Amitriptyline HCl 100 mg PO 02/12/18 Atorvastatin Calcium 02/12/18 EPINEPHrine [Epipen 2-Haroon] 02/12/18 Fluticasone [Flonase] 02/12/18 02/12/18 Loratadine [Claritin] 02/12/18 Metoprolol Tartrate 02/12/18 Pantoprazole [Protonix] 02/12/18 SUMAtriptan [Imitrex] 02/12/18 Topiramate 02/12/18 amLODIPine [Norvasc] 02/12/18 raNITIdine [Zantac] 02/12/18 Cetirizine [ZyrTEC] 10 mg PO DAILY #15 tablet 10/01/18 EPINEPHrine [Epinephrine] 0.3 mg IJ ONCE PRN #2 auto.injct 10/01/18 Famotidine 20 mg PO BID #20 tablet 10/01/18 dexAMETHasone [Decadron] 4 mg PO DAILY #5 tablet 10/01/18 Benzonatate [Tessalon Perle] 100 - 200 mg PO TID PRN #30 capsule 03/23/19 Cetirizine HCl/Pseudoephedrine 1 each PO BID PRN #30 tab.er.12h 03/23/19 [Zyrtec-D Tablet] predniSONE [Prednisone] 40 mg PO DAILY #10 tablet 03/23/19 Albuterol Sulf [Ventolin Hfa 1 - 2 puffs INH Q4HR PRN #1 inhaler 05/17/19 Inhaler] Benzonatate [Tessalon Perle] 100 - 200 mg PO TID PRN #30 capsule 05/17/19 Doxycycline Monohydrate 100 mg PO BID #14 tablet 05/17/19 dexAMETHasone [Decadron] 4 mg PO DAILY #7 tablet 05/17/19 Clindamycin HCl [Clindamycin 300MG 300 mg PO Q6H #40 capsule 08/05/19 CAP] - Allergies Allergies/Adverse Reactions: Allergies Allergy/AdvReac Type Severity Reaction Status Date / Time cefuroxime axetil * Allergy Severe Hives Verified 08/05/19 22:02 [From Ceftin] ibuprofen [From Motrin] Allergy Severe Hives Verified 08/05/19 22:02 Penicillins Allergy Severe Hives Verified 08/05/19 22:02 losartan potassium * Allergy Intermediate Rash Verified 08/05/19 22:02 [From Cozaar] vancomycin Allergy Intermediate Hives Verified 08/05/19 22:02 avocado Allergy Unknown Verified 08/05/19 22:02 cashew nut Allergy Unknown Verified 08/05/19 22:02 desipramine Allergy Hives Verified 08/05/19 22:02 hazelnut Allergy Unknown Verified 08/05/19 22:02 indomethacin Allergy Hives Verified 08/05/19 22:02 losartan [From Cozaar] Allergy Hives Verified 08/05/19 22:02 pecan nut Allergy Unknown Verified 08/05/19 22:02 sesame oil Allergy Anaphylaxis Verified 08/05/19 22:02 sesame seed Allergy Anaphylaxis Verified 08/05/19 22:02 bupropion HCl * AdvReac Severe Anxiety Verified 08/05/19 22:02 [From Wellbutrin] Review of Systems - Constitutional Constitutional: reports: Chills. denies: Fever - Eyes Eyes: denies: Pain, Dipolpia - Ears, Nose & Throat Ears, Nose & Throat: denies: Tinnitus - Cardiovascular Cariovascular: denies: Irregular heart rate, Palpitations, Chest pain, Edema - Respiratory Respiratory: denies: SOB at rest, SOB with exertion - Gastrointestinal Gastrointestinal: reports: Reflux/heartburn. denies: Abdominal pain, Abdominal distention, Constipation, Diarrhea, Change in bowel habits - Genitourinary Genitourinary: denies: Dysuria, Frequency, Urgency, Hematuria - Musculoskeletal Musculoskeletal: denies: Muscle pain, Back pain, Muscle aches, Stiffness - Integumentary Integumentary: reports: Rash (left hand redness) - Neurological Neurological: denies: General weakness, Focal weakness, Dizziness - Psychiatric Psychiatric: denies: Depression, Anxiety - Endocrine Endocrine: denies: Polyuria, Polydypsia - Hematologic/Lymphatic Hematologic/Lymphatic: denies: Anemia, Bruising, Petechiae Prior Level of Functionality: She is independent of activities of daily living Exam - Vital Signs Vital Signs: Vital Signs x48h Temp Pulse Resp BP Pulse Ox 08/05/19 21:55 37.1 C 72 20 150/76 H 100 - Physical Exam General Appearance: positive: Alert, Moderate distress Eyes Bilateral: positive: Normal inspection, PERRL, EOMI ENT: positive: ENT inspection nml, No signs of dehydration Neck: positive: No JVD, Trachea midline Respiratory: positive: Chest non-tender, No respiratory distress, Breath sounds nml. negative: Wheezes, Rales, Rhonchi Cardiovascular: positive: Regular rate & rhythm, No murmur Abdomen: positive: Non-tender, No organomegaly, Nml bowel sounds, No distention. negative: Guarding, Rebound, Hepatomegaly, Splenomegaly Skin: positive: Puncture wound (dog bite between left thumb and index finger. hand erythematous with streaking redness down forearm) Extremities: positive: No pedal edema Neurologic/Psychiatric: positive: Oriented x3, CN's nml (2-12), Motor nml, Sensation nml, Mood/affect nml Conclusion/Plan - Problem List (1) Cellulitis of left hand Conclusion/Plan: 2/2 dog bite. Patient was given clindamycin earlier in the day. However redness increased. Blood cultures pending. Will continue clindamycin q6hr. Will add ciprofloxacin q12hrs to cover for Pasteurella canis Will use norco for pain. Patient was given a tetanus shot earlier in the day (2) Dog bite of left hand with infection Conclusion/Plan: 2/2 dog bite. Patient was given clindamycin earlier in the day. However redness increased. Blood cultures pending. Will continue clindamycin q6hr. Will add ciprofloxacin q12hrs to cover for Pasteurella canis Will use norco for pain. Patient was given a tetanus shot earlier in the day Qualifiers: Encounter type: subsequent encounter Qualified Code(s): S61.452D - Open bite of left hand, subsequent encounter; L08.9 - Local infection of the skin and subcutaneous tissue, unspecified; W54.0XXD - Bitten by dog, subsequent encounter (3) Hypertension Conclusion/Plan: It appears patient is on amlodipine, metoprolol and HCTZ Will resume once verified by (4) Hyperlipidemia Conclusion/Plan: On atorvastatin (5) GERD (gastroesophageal reflux disease) Conclusion/Plan: Protonix ordered (6) Migraine Conclusion/Plan: Not having an exacerbation currently. On topamax. Sumatriptan prn. Qualifiers: Migraine type: unspecified Status migrainosus presence: without status migrainosus Intractability: not intractable Qualified Code(s): G43.909 - Oswaldo herrmann, unspecified, not intractable, without status migrainosus - Lab Results Fish Bones: 08/05/19 22:12 08/05/19 22:12 Core Measures - Anticipated LOS I expect patient to be DC'd or transferred within 96 hours.: Yes - DVT/VTE - Prophylaxis VTE/DVT Device ordered at admit?: Yes VTE/DVT Prophylaxis med ordered at admit?: Yes
[2019-08-06] MEDS ORDERED: SODIUM CHLORIDE 0.9% 500 ML IV PRN (00:33)
[2019-08-06] MEDS: CLINDAMYCIN 600 MG/50 ML 50 ML IV SCH ×4 (00:49→18:30)
[2019-08-06] MEDS: SODIUM CHLORIDE FLUSH 0.9% 10 ML SYRINGE IVP SCH ×3 (00:49→16:06)
[2019-08-06] MEDS: CIPROFLOXACIN 400 MG/200 ML 200 ML IV SCH ×2 (01:25→10:52)
[2019-08-06] MEDS: HYDROcod/ACETAM 5/325 MG TABLET PO PRN ×4 (01:33→20:48)
[2019-08-06] MEDS: HYDROmorphone 1 MG/ML CARPUJECT IVP PRN ×2 (04:39→13:09)
[2019-08-06 04:43] LABS: BASOPHILS % (AUTO) 0.3 %; EOSINOPHILS # (AUTO) 0.6 10^3/uL (0.0-0.7); EOSINOPHILS % (AUTO) 5.2 %; HGB - HEMOGLOBIN 11.6 g/dL (12.0-16.0); LYMPHOCYTES # (AUTO) 1.8 10^3/uL (1.5-3.5); LYMPHOCYTES % (AUTO) 15.7 %; MEAN CORPUSCULAR HEMOGLOBIN 31.6 pg (27.0-31.0); MEAN CORPUSCULAR HGB CONC 32.6 g/dL (32.0-36.0); MEAN PLATELET VOLUME 9.6 fL (7.9-10.8); MONOCYTES # (AUTO) 0.7 10^3/uL (0.0-1.0); MONOCYTES % (AUTO) 5.8 %; NEUTROPHILS # (AUTO) 8.3 10^3/uL (1.5-6.6); NEUTROPHILS % (AUTO) 72.6 %; PLT - PLATELET COUNT 211 10^3/uL (130-450); RED BLOOD COUNT 3.67 10^6/uL (4.20-5.40); RED CELL DISTRIBUTION WIDTH 12.9 % (12.0-15.0); WHITE BLOOD COUNT 11.5 x10^3/uL (4.8-10.8)
[2019-08-06 04:54] LABS: CALCIUM 8.6 mg/dL (8.5-10.3)
[2019-08-06] MEDS ORDERED: PANTOPRAZOLE 40 MG TABLET PO SCH (07:00)
[2019-08-06] MEDS: SODIUM CHLORIDE 0.9% 1,000 ML IV SCH ×2 (09:21→18:27)
[2019-08-06] MEDS: ENOXAPARIN 40 MG/0.4 ML SYRINGE SUBQ SCH (09:21)
--- NOTE | 2019-08-06 10:00 | Discharge Plan ---
Discharge Plan Problem Reviewed?: Yes Disposition: Home, Self Care Condition: Stable Diet: Low Sodium Activity Restrictions: Activity as Tolerated Shower Restrictions: No Instruction Topics: ED Infec Skin Cellulitis Health Concerns: You were placed in Observation status for starting management with different antibiotics and for aggressive pain management. The area of cellulitis appears better and you are being discharged. Please take the new antibiotics that were ordered along with probiotics, these prescriptions were sent electronically to your pharmacy. Resume your other prehospital medications. See your PCP in follow-up in the next 5 to 7 days to check the infected area, adjustment in medications may still be needed. Plan of Treatment: As above. Care Goals: Improvement in symptoms and stabilization are the goals. Assessment: Patient understands and is agreeable with the plan. Additional Instructions or Follow Up instructions: If you have new or worsening symptoms, call your PCP for advice or come to the ER. No Smoking: If you smoke, Please STOP! Call for help.
--- NOTE | 2019-08-06 10:03 | DISCHARGE SUMMARY ---
Discharge Summary Admit Date: 08/05/19 Discharge Date: 08/06/19 Discharging Provider: Dr Felicitas Saez Primary Care Provider: Dr Dane Trevino Condition at Discharge: Stable Discharge Disposition: 01 Home, Self Care - DIAGNOSES Admission Diagnoses: (1) Cellulitis of left hand (2) Dog bite of left hand with infection (3) Hypertension (4) Hyperlipidemia (5) GERD (gastroesophageal reflux disease) (6) Migraine Hx Discharge Diagnoses with Status of Each Condition: See below - HPI History of Present Illness: From the admission H&P of Dr. Dianelys Lagos: Patient is a 69 y/o female with a Hx of HTN, migraines and GERD, who presented to the ED with left hand swelling, redness and pain. She was bitten by her 's dog today morning. It is a 17 y/o dog. It had gone out of the house and got confused. On trying to return it went to the neighbors house. The patient was trying to get the dog back to their house so she tried to lift the dog when it nipped at her hand. She was seen in the ED earlier in the day and was given a dose of clindamycin and a tetanus shot. She was discharged home with a prescription for oral clindamycin and would have been due for her next dose by 10pm. However the redness increased beyond the demarcated borders, she started shivering and experiencing more pain and spreading redness with swelling up the arm, so she presented to the ED around 9pm. She had a WBC of 14. She denied chest pain, dyspnea, migraine pain, abdominal pain, nausea or vomiting. As a result of the worsening redness, she is being placed in Observation status for increased management of cellulitis from a dog bite. - HOSPITAL COURSE Hospital Course: (1) Cellulitis of left hand Secondary to the dog bite. Blood cultures were drawn and are pending. She was continued on clindamycin q6hr iv, and started on ciprofloxacin q12hrs iv, added to cover for Pasteurella canis. Aylett was ordered for pain. The patient had been given a tetanus shot earlier in the day. She was discharged the following day, since the rednesss and swelling was decreasing, WBC dropped from 14 to 11, and her pain control was adequate. She was prescribed a course of oral Cipro and Clindamycin plus probiotics, and Aylett prescribed for pain. She was advised to have follow-up with her PCP in 5-7 days for a wound check. (2) Dog bite of left hand with infection As above. The wound should stay clean and dry. (3) Hypertension She was continued on amlodipine, metoprolol and HCTZ (4) Hyperlipidemia Atorvastatin was continued. (5) GERD (gastroesophageal reflux disease) Protonix ordered (6) Migraine The patient was not having an exacerbation currently. She was continued on topamax and Sumatriptan prn. - ALLERGIES Allergies/Adverse Reactions: Allergies Allergy/AdvReac Type Severity Reaction Status Date / Time cefuroxime axetil * Allergy Severe Hives Verified 08/05/19 22:02 [From Ceftin] ibuprofen [From Motrin] Allergy Severe Hives Verified 08/05/19 22:02 Penicillins Allergy Severe Hives Verified 08/05/19 22:02 losartan potassium * Allergy Intermediate Rash Verified 08/05/19 22:02 [From Cozaar] vancomycin Allergy Intermediate Hives Verified 08/05/19 22:02 avocado Allergy Unknown Verified 08/05/19 22:02 cashew nut Allergy Unknown Verified 08/05/19 22:02 desipramine Allergy Hives Verified 08/05/19 22:02 hazelnut Allergy Unknown Verified 08/05/19 22:02 indomethacin Allergy Hives Verified 08/05/19 22:02 losartan [From Cozaar] Allergy Hives Verified 08/05/19 22:02 pecan nut Allergy Unknown Verified 08/05/19 22:02 sesame oil Allergy Anaphylaxis Verified 08/05/19 22:02 sesame seed Allergy Anaphylaxis Verified 08/05/19 22:02 bupropion HCl * AdvReac Severe Anxiety Verified 08/05/19 22:02 [From Wellbutrin] - MEDICATIONS Home Medications: Ambulatory Orders Medication Instructions Recorded Confirmed Topiramate 100 mg PO BID 10/26/13 10/25/14 Sumatriptan Inj [Imitrex Inj] 6 mg INJ PRN 06/12/14 10/25/14 hydroCHLOROthiazide 12.5 mg PO DAILY 10/25/14 10/25/14 [Hydrochlorothiazide] Albuterol Sulf [Ventolin Hfa 1 - 2 puffs INH Q4HR PRN 02/12/18 08/06/19 Inhaler] Amitriptyline HCl 100 mg PO QPM 02/12/18 08/06/19 Atorvastatin Calcium 20 mg PO DAILY 02/12/18 08/06/19 EPINEPHrine [Epipen 2-Haroon] 02/12/18 Metoprolol Tartrate 50 mg PO BID 02/12/18 08/06/19 Pantoprazole [Protonix] 40 mg PO DAILY 02/12/18 08/06/19 SUMAtriptan [Imitrex] 02/12/18 amLODIPine [Norvasc] 5 mg PO DAILY 02/12/18 08/06/19 Clindamycin HCl [Clindamycin 300MG 300 mg PO Q6H #40 capsule 08/05/19 08/06/19 CAP] Ascorbic Acid [Vitamin C] 500 mg PO DAILY 08/06/19 08/06/19 Butalb/Acetaminophen/Caffeine 1 tab PO DAILY PRN 08/06/19 08/06/19 [Fvymem-Tgxikmmr-Meud 50-325-40] Calcium Carbonate 500 mg PO DAILY 08/06/19 08/06/19 Levothyroxine [Synthroid] 12.5 mcg PO DAILY 08/06/19 08/06/19 Multivitamin [Theragran] 1 tab PO DAILY 08/06/19 08/06/19 - LABS Result Diagrams: 08/06/19 04:38 08/06/19 04:38
--- NOTE | 2019-08-06 12:44 | PHARMACY PROGRESS NOTE ---
- Best Possible Medication History Admit Date and Time: 08/05/19 2278 Processed by: Pharmacy Medication History completed: Yes Patient Interview: Completed Secondary Source(s): Written medication list, Spouse/Significant other (Medication list provided by spouse via email to [facility] ([facility])) As the person ultimately responsible for medication therapy, providers are able to order a medication from an existing home medication list in [facility] via the "Reconcile Routine" prior to Confirmation of that medication by network support analyst. Such practice is discouraged except when the physician, in their clinical judgment, deems that a medical need exists for a medication without regard to previous use.
[2019-08-06] MEDS ORDERED: SUMAtriptan 6 MG/0.5 ML VIAL SUBQ PRN (14:24)
[2019-08-06 14:33] LABS: BASOPHILS % (AUTO) 0.3 %; EOSINOPHILS # (AUTO) 0.5 10^3/uL (0.0-0.7); EOSINOPHILS % (AUTO) 5.3 %; HGB - HEMOGLOBIN 10.7 g/dL (12.0-16.0); LYMPHOCYTES # (AUTO) 1.1 10^3/uL (1.5-3.5); LYMPHOCYTES % (AUTO) 10.7 %; MEAN CORPUSCULAR HEMOGLOBIN 30.7 pg (27.0-31.0); MEAN CORPUSCULAR HGB CONC 32.4 g/dL (32.0-36.0); MEAN CORPUSCULAR VOLUME 94.8 fL (81.0-99.0); MEAN PLATELET VOLUME 9.4 fL (7.9-10.8); MONOCYTES # (AUTO) 0.5 10^3/uL (0.0-1.0); NEUTROPHILS # (AUTO) 7.9 10^3/uL (1.5-6.6); NEUTROPHILS % (AUTO) 78.3 %; PLT - PLATELET COUNT 195 10^3/uL (130-450); RED BLOOD COUNT 3.48 10^6/uL (4.20-5.40); RED CELL DISTRIBUTION WIDTH 13.2 % (12.0-15.0); WHITE BLOOD COUNT 10.1 x10^3/uL (4.8-10.8)
--- NOTE | 2019-08-06 16:08 | PROVIDER PROGRESS NOTE ---
Assessment/Plan - Problem List (1) Cellulitis of left hand Assessment/Plan: There is been minimal improvement of the site of redness, compared to where it was outlined at its maximum size. She feels no better today (but also has a new headache and new nausea). There has been no fever since admitted. Will recheck her lactic acid level and follow her WBC. The patient will be admitted to full Inpatient status to await if blood cultures turn positive. This would take up to 48 hours. Await wound culture results. Continue with empiric IV antibiotics. The patient cannot be discharged today because she is nauseated and cannot keep down oral antibiotics. I reviewed this plan with the patient, and her at bedside, as I checked on her several times today. (2) Dog bite of left hand with infection Qualifiers: Encounter type: subsequent encounter Qualified Code(s): S61.452D - Open bite of left hand, subsequent encounter; L08.9 - Local infection of the skin and subcutaneous tissue, unspecified; W54.0XXD - Bitten by dog, subsequent encounter Assessment/Plan: The patient reports that the site of the bite started to open and drain purulent fluid and that a culture was sent of the wound fluid from the emergency room. I cannot find any specimens and microbiology of the wound. We will order a wound drain needs culture. We will order MAC wound nurse to see. Continue with pain management, elevation of the arm and antibiotics. (3) Migraine headache Assessment/Plan: Patient started getting a headache when the left arm was used to measure her blood pressure, then the pain in the cellulitic left arm spread up to her shoulder and into her head and this led to this persistent headache. The room is now dark and she is starting to have a migraine. Will order Imitrex and her other management for migraines. (4) Nausea Assessment/Plan: I asked the patient if this is her typical symptom with a migraine or if it is from getting narcotics and she cannot tell. Her diet will be de-escalated down to clear liquids. She cannot be discharged today because she cannot take p.o. antibiotics. Continue with PRN antiemetics IV. Her meds will be changed to IV therapy where appropriate. (5) Hypertension Assessment/Plan: She is on 3 home blood pressure medications. None have been started since her blood pressure is "soft". - Current Meds Current Meds: Current Medications Generic Name Dose Route Start Last Admin Trade Name Freq PRN Reason Stop Dose Admin Hydrocodone Bitart/Acetaminophen 1 tab 08/05/19 23:38 08/06/19 08:05 Kinder 5/325 PO 1 tab Q4HR PRN Administration Pain 5 to 7 Enoxaparin Sodium 40 mg 08/06/19 09:00 08/06/19 09:21 Lovenox SUBQ 40 mg DAILY [facility] Administration Clindamycin Phosphate 50 mls @ 100 mls/hr 08/06/19 00:01 08/06/19 12:31 Cleocin 600 Mg/50 Ml IV Infused Q6HR [facility] Infusion Ciprofloxacin 200 mls @ 200 mls/hr 08/05/19 23:45 08/06/19 11:52 Cipro 400 Mg/200 Ml IV Infused Q12H [facility] Infusion Sodium Chloride 500 mls @ 0 mls/hr 08/06/19 00:33 08/06/19 08:45 Normal Saline 0.9% IV Infused Q24H PRN Infusion TKO RATE TKO Sodium Chloride 1,000 mls @ 125 mls/hr 08/06/19 05:00 08/06/19 09:21 Normal Saline 0.9% IV 125 mls/hr .Q8H [facility] Administration Sodium Chloride 10 ml 08/06/19 01:00 08/06/19 09:21 Normal Saline Flush 0.9% IVP Not Given 0100,0900,1700 [facility] Sumatriptan Succinate 6 mg 08/06/19 14:24 08/06/19 15:58 Imitrex Inj SUBQ 6 mg DAILY PRN Administration HEADACHE - Lab Result Fish Bone Diagrams: 08/06/19 14:27 08/06/19 04:38 - Additional Planning My Orders: My Active Orders 08/06/19 Wound Consult MAC [MAC] Routine 08/06/19 14:02 Miscellaenous Nursing Order [RC] ONCE 08/06/19 14:10 CUL,WOUND (AEROBIC) [RM] Urgent 08/06/19 14:24 Sumatriptan Inj [Imitrex Inj] 6 mg SUBQ DAILY PRN 08/06/19 16:01 Miscellaenous Nursing Order [RC] QSHIFT 08/06/19 21:00 Amitriptyline [Elavil] 100 mg PO QPM Famotidine [Pepcid] 20 mg IVP DAILY Topiramate [Topamax] 100 mg PO BID 08/06/19 Dinner Clear Liquid Diet [DIET] 08/07/19 08:00 Echo Transthoracic Complete [ECHO] Routine 08/07/19 09:00 Levothyroxine [Synthroid] 12.5 mcg PO DAILY Subjective - Subjective Patient Reports: Chest Pain, Headache, Nausea, Other (L arm pain worse when BP cuff measures BP on L arm) Objective Vital Signs: Vital Signs - 24 hr 08/05/19 08/06/19 08/06/19 21:55 00:19 00:20 Temperature 37.1 C 38.0 C H 37.1 C Heart Rate 72 78 Heart Rate [ 82 Brachial] Respiratory 20 14 16 Rate Blood Pressure 150/76 H 140/78 H Blood Pressure 149/77 H [Right Brachial artery] O2 Saturation 100 100 100 08/06/19 08/06/19 08/06/19 03:59 04:48 06:50 Temperature 36.5 C 36.5 C Heart Rate 80 Heart Rate [ 76 80 Brachial] Respiratory 18 18 18 Rate Blood Pressure Blood Pressure 130/61 [Right Brachial artery] O2 Saturation 100 96 96 08/06/19 08/06/19 07:53 13:43 Temperature 36.8 C 37.4 C Heart Rate Heart Rate [ 74 84 Brachial] Respiratory 18 20 Rate Blood Pressure Blood Pressure 133/63 H 157/74 H [Right Brachial artery] O2 Saturation 99 96 Oxygen O2 Source Room air I&O (Last 24 Hrs): Intake and Output Totals x24h 08/04/19 08/05/19 08/06/19 23:59 23:59 23:59 Intake Total 100 1710.00 Balance 100 1710.00 General: Alert, Mild distress (nauseated and has a headache), Other (Groggy) HEENT: Mucous membr. moist/pink Neck: Supple, No JVD Neuro: Alert, Other (Groggy) Cardiovascular: Regular rate Respiratory: No respiratory distress Abdomen: Soft Extremities: Other (L arm redness and swlling at wrist and spreads down to do rsum of hand and up the forearm (outlined), the bite site is bandaged where pus was draining) - Results Results: Laboratory Results WBC 10.1 x10^3/uL (4.8-10.8) 08/06/19 14: RBC 3.48 10^6/uL (4.20-5.40) L 08/06/19 14: Hgb 10.7 g/dL (12.0-16.0) L 08/06/19 14: Hct 33.0 % (37.0-47.0) L 08/06/19 14: MCV 94.8 fL (81.0-99.0) 08/06/19 14: MCH 30.7 pg (27.0-31.0) 08/06/19 14: MCHC 32.4 g/dL (32.0-36.0) 08/06/19 14: RDW 13.2 % (12.0-15.0) 08/06/19 14: Plt Count 195 10^3/uL (130-450) 08/06/19 14: MPV 9.4 fL (7.9-10.8) 08/06/19 14: Neut # (Auto) 7.9 10^3/uL (1.5-6.6) H 08/06/19 14: Lymph # (Auto) 1.1 10^3/uL (1.5-3.5) L 08/06/19 14: [place] # (Auto) 0.5 10^3/uL (0.0-1.0) 08/06/19 14: Eos # (Auto) 0.5 10^3/uL (0.0-0.7) 08/06/19: Baso # (Auto) 0.0 10^3/uL (0.0-0.1) 08/06/19 14: Absolute Nucleated RBC 0.00 x10^3/uL 08/06/19 14: Nucleated RBC % 0.0 /100WBC 08/06/19 14: PT 11.1 secs (9.9-12.6) 08/05/19 22:12 INR 1.0 (0.8-1.2) 08/05/19 22:12 APTT 28.0 secs (24.9-33.3) 08/05/19 22:12 Sodium 140 mmol/L (135-145) 08/06/19 04:38 Potassium 3.7 mmol/L (3.5-5.0) 08/06/19 04:38 Chloride 106 mmol/L (101-111) 08/06/19 04:38 Carbon Dioxide 22 mmol/L (21-32) 08/06/19 04:38 Anion Gap 12.0 (6-13) 08/06/19 04:38 BUN 16 mg/dL (6-20) 08/06/19 04:38 Creatinine 1.0 mg/dL (0.4-1.0) 08/06/19 04:38 Estimated GFR (MDRD) 55 (>89) L 08/06/19 04:38 Glucose 95 mg/dL (70-100) 08/06/19 04:38 Lactic Acid 0.6 mmol/L (0.5-2.2) 08/06/19 14:27 Calcium 8.6 mg/dL (8.5-10.3) 08/06/19 04:38 Total Bilirubin 0.2 mg/dL (0.2-1.0) 08/05/19 22:12 AST 30 IU/L (10-42) 08/05/19 22:12 ALT 23 IU/L (10-60) 08/05/19 22:12 Alkaline Phosphatase 91 IU/L (42-121) 08/05/19 22:12 Lactate Dehydrogenase 186 IU/L (91-225) 08/05/19 22:12 Troponin I High Sens 3.2 ng/L (2.3-14.8) 08/06/19 14:27 Total Protein 8.4 g/dL (6.7-8.2) H 08/05/19 22:12 Albumin 4.6 g/dL (3.2-5.5) 08/05/19 22:12 Globulin 3.8 g/dL (2.1-4.2) 08/05/19 22:12 Albumin/Globulin Ratio 1.2 (1.0-2.2) 08/05/19 22:12 Lipase 26 U/L (22-51) 08/06/19 04:38
[2019-08-06] MEDS: ONDANSETRON 4 MG/2 ML VIAL IVP PRN ×2 (16:12→20:45)
[2019-08-06] MEDS: SODIUM CHLORIDE FLUSH 0.9% 10 ML SYRINGE IVP PRN ×2 (20:46→20:52)
[2019-08-06] MEDS: AMITRIPTYLINE 25 MG TABLET PO SCH (20:50)
[2019-08-06] MEDS: TOPIRAMATE 100 MG TABLET PO SCH (20:51)
[2019-08-06] MEDS: FAMOTIDINE 20 MG/2 ML VIAL IVP SCH (20:52)
[2019-08-07] MEDS: CLINDAMYCIN 600 MG/50 ML 50 ML IV SCH ×5 (00:03→23:45)
[2019-08-07] MEDS: CIPROFLOXACIN 400 MG/200 ML 200 ML IV SCH ×2 (00:45→13:07)
[2019-08-07] MEDS: SODIUM CHLORIDE FLUSH 0.9% 10 ML SYRINGE IVP SCH ×3 (00:48→15:57)
[2019-08-07] MEDS: SODIUM CHLORIDE 0.9% 1,000 ML IV SCH ×4 (03:34→22:27)
[2019-08-07 04:56] LABS: BASOPHILS % (AUTO) 0.4 %; EOSINOPHILS # (AUTO) 0.4 10^3/uL (0.0-0.7); EOSINOPHILS % (AUTO) 6.2 %; HGB - HEMOGLOBIN 9.9 g/dL (12.0-16.0); LYMPHOCYTES # (AUTO) 1.2 10^3/uL (1.5-3.5); MEAN CORPUSCULAR HEMOGLOBIN 30.1 pg (27.0-31.0); MEAN CORPUSCULAR HGB CONC 31.6 g/dL (32.0-36.0); MEAN CORPUSCULAR VOLUME 95.1 fL (81.0-99.0); MEAN PLATELET VOLUME 9.6 fL (7.9-10.8); MONOCYTES # (AUTO) 0.5 10^3/uL (0.0-1.0); MONOCYTES % (AUTO) 7.3 %; NEUTROPHILS # (AUTO) 4.9 10^3/uL (1.5-6.6); NEUTROPHILS % (AUTO) 68.8 %; PLT - PLATELET COUNT 191 10^3/uL (130-450); RED BLOOD COUNT 3.29 10^6/uL (4.20-5.40); RED CELL DISTRIBUTION WIDTH 13.2 % (12.0-15.0); WHITE BLOOD COUNT 7.1 x10^3/uL (4.8-10.8)
[2019-08-07 05:07] LABS: CALCIUM 8.1 mg/dL (8.5-10.3); CREATININE 0.8 mg/dL (0.4-1.0)
[2019-08-07] MEDS ORDERED: POTASSIUM CHLORIDE 20 MEQ TABLET PO ONE (07:11)
[2019-08-07] MEDS: TOPIRAMATE 100 MG TABLET PO SCH ×2 (08:20→20:18)
[2019-08-07] MEDS: HYDROcod/ACETAM 5/325 MG TABLET PO PRN ×3 (08:20→20:18)
[2019-08-07] MEDS: LEVOTHYROXINE 25 MCG TABLET PO SCH (08:21)
[2019-08-07] MEDS: FAMOTIDINE 20 MG/2 ML VIAL IVP SCH (08:22)
[2019-08-07] MEDS: ENOXAPARIN 40 MG/0.4 ML SYRINGE SUBQ SCH (08:23)
[2019-08-07] MEDS ORDERED: GADOBUTROL 7.5 MMOL/7.5 ML VIAL ONE (10:53)
--- NOTE | 2019-08-07 10:56 | PROVIDER PROGRESS NOTE ---
Subjective - Prog Note Date Prog Note Date: 08/07/19 - Subjective Subjective: She continues to complain of a headache but reports no more nausea. She states the redness in her left extremity has increased in size. She continues to complain of left hand and forearm swelling. The area is tender to touch. She still notes drainage from the site of the dog bite. Reports no numbness in her hand. Current Medications - Current Medications Current Medications: Active Medications Hydrocodone Bitart/Acetaminophen (Ciales 5/325) 1 tab PO Q4HR PRN PRN Reason: Pain 5 to 7 Last Admin: 08/07/19 08:20 Dose: 1 tab Amitriptyline HCl (Elavil) 100 mg PO QPM [facility] Last Admin: 08/06/19 20:50 Dose: 100 mg Atorvastatin Calcium (Lipitor) 20 mg PO QPM [facility] Enoxaparin Sodium (Lovenox) 40 mg SUBQ DAILY [facility] Last Admin: 08/07/19 08:23 Dose: 40 mg Famotidine (Pepcid) 20 mg IVP DAILY [facility] Last Admin: 08/07/19 08:22 Dose: 20 mg Clindamycin Phosphate (Cleocin 600 Mg/50 Ml) 50 mls @ 100 mls/hr IV Q6HR [facility] Last Infusion: 08/07/19 07:00 Dose: Infused Ciprofloxacin (Cipro 400 Mg/200 Ml) 200 mls @ 200 mls/hr IV Q12H [facility] Last Infusion: 08/07/19 02:01 Dose: Infused Sodium Chloride (Normal Saline 0.9%) 500 mls @ 0 mls/hr IV Q24H PRN PRN Reason: TKO RATE Last Infusion: 08/06/19 08:45 Dose: Infused Sodium Chloride (Normal Saline 0.9%) 1,000 mls @ 125 mls/hr IV .Q8H [facility] Last Admin: 08/07/19 07:53 Dose: Not Given Levothyroxine Sodium (Synthroid) 12.5 mcg PO DAILY [facility] Last Admin: 08/07/19 08:21 Dose: 12.5 mcg Ondansetron HCl (Zofran Inj) 4 mg IVP Q4H PRN PRN Reason: Nausea / Vomiting Last Admin: 08/06/19 20:45 Dose: 4 mg Sodium Chloride (Normal Saline Flush 0.9%) 10 ml IVP PRN PRN PRN Reason: NEEDED PER PROVIDER ORDERS Last Admin: 08/06/19 20:52 Dose: 10 ml Sodium Chloride (Normal Saline Flush 0.9%) 10 ml IVP 0100,0900,1700 [facility] Last Admin: 08/07/19 08:23 Dose: 10 ml Sumatriptan Succinate (Imitrex Inj) 6 mg SUBQ DAILY PRN PRN Reason: HEADACHE Last Admin: 08/06/19 15:58 Dose: 6 mg Topiramate (Topamax) 100 mg PO BID [facility] Last Admin: 08/07/19 08:20 Dose: 100 mg Topiramate 100 mg PO BID 10/26/13 Sumatriptan Inj [Imitrex Inj] 6 mg INJ DAILY PRN 06/12/14 Albuterol Sulf [Ventolin Hfa Inhaler] 1 - 2 puffs INH Q4HR PRN 02/12/18 Amitriptyline HCl 100 mg PO QPM 02/12/18 Atorvastatin Calcium 20 mg PO DAILY 02/12/18 EPINEPHrine [Epipen 2-Haroon] 0.3 mg IM PRN PRN 02/12/18 Metoprolol Tartrate 50 mg PO BID 02/12/18 Pantoprazole [Protonix] 40 mg PO DAILY 02/12/18 amLODIPine [Norvasc] 5 mg PO DAILY 02/12/18 Ascorbic Acid [Vitamin C] 500 mg PO DAILY 08/06/19 Butalb/Acetaminophen/Caffeine [Ogfcmk-Wjixzfup-Byig 50-325-40] 1 tab PO DAILY PRN 08/06/19 Calcium Carbonate 500 mg PO DAILY 08/06/19 Cyanocobalamin (Vitamin B-12) [Vitamin B-12] 3,000 mcg PO DAILY 08/06/19 Famotidine 20 mg PO BID 08/06/19 Folic Acid 0.4 mg PO DAILY 08/06/19 Levothyroxine [Synthroid] 12.5 mcg PO DAILY 08/06/19 Multivitamin [Theragran] 1 tab PO DAILY 08/06/19 Objective - Vital Signs/Intake & Output Reviewed Vital Signs: Yes Vital Signs: Vital Signs x48h Temp Pulse Resp BP Pulse Ox 08/07/19 08:05 37.1 C 81 18 147/71 H 100 Intake & Output: Intake & Output 08/04/19 08/05/19 08/06/1918/20 23:59 23:59 23:59 23:59 Intake Total 100 3971.667 1517.917 Balance 100 3971.667 1517.917 - Objective General Appearance: positive: Alert, Mild distress Eyes Bilateral: positive: Normal inspection, Conjunctivae nml ENT: positive: ENT inspection nml Neck: positive: Nml inspection Respiratory: positive: No respiratory distress. negative: Wheezes, Rales, Rhonchi Cardiovascular: positive: Regular rate & rhythm, No murmur. negative: Tachycardia, Bradycardia, Systolic murmur, Diastolic murmur Abdomen: positive: Non-tender, No distention. negative: Tenderness, Guarding, Rebound Skin: positive: Other (There is an area of erythema extending from her left hand and jail through her 4 digits up to her elbow. The area of erythema has extended past the markers that were drawn yesterday. There is mild edema. No obvious mass or fluctuance appreciated. There is purulent drainage from the dog bite over the medial aspect of the hand superior to the thumb. She has less than 2 seconds capillary refill and is neurovascularly intact. The area is warm to touch and tender to palpation.) Extremities: positive: Full ROM Neurologic/Psychiatric: positive: Oriented x3. negative: Disoriented to person, Disoriented to place, Disoriented to time - Lab Results Fish Bones: 08/07/19 04:37 08/07/19 04:37 Other Labs: Lab Results x24hrs 08/07/19 08/07/19 08/06/19 Range/Units 04:37 04:37 14:27 WBC 7.1 10.1 (4.8-10.8) x10^3/uL RBC 3.29 L 3.48 L (4.20-5.40) 10^6/uL Hgb 9.9 L 10.7 L (12.0-16.0) g/dL Hct 31.3 L 33.0 L (37.0-47.0) % MCV 95.1 94.8 (81.0-99.0) fL MCH 30.1 30.7 (27.0-31.0) pg MCHC 31.6 L 32.4 (32.0-36.0) g/dL RDW 13.2 13.2 (12.0-15.0) % Plt Count 191 195 (130-450) 10^3/uL MPV 9.6 9.4 (7.9-10.8) fL Neut # (Auto) 4.9 7.9 H (1.5-6.6) 10^3/uL Lymph # (Auto) 1.2 L 1.1 L (1.5-3.5) 10^3/uL [place] # (Auto) 0.5 0.5 (0.0-1.0) 10^3/uL Eos # (Auto) 0.4 0.5 (0.0-0.7) 10^3/uL Baso # (Auto) 0.0 0.0 (0.0-0.1) 10^3/uL Absolute Nucleated RBC 0.00 0.00 x10^3/uL Nucleated RBC % 0.0 0.0 /100WBC Sodium 139 (135-145) mmol/L Potassium 3.2 L (3.5-5.0) mmol/L Chloride 113 H (101-111) mmol/L Carbon Dioxide 19 L (21-32) mmol/L Anion Gap 7.0 (6-13) BUN 10 (6-20) mg/dL Creatinine 0.8 (0.4-1.0) mg/dL Estimated GFR (MDRD) 71 L (>89) Glucose 98 (70-100) mg/dL Lactic Acid (0.5-2.2) mmol/L Calcium 8.1 L (8.5-10.3) mg/dL Troponin I High Sens (2.3-14.8) ng/L 08/06/19 08/06/19 Range/Units 14:27 14:27 WBC (4.8-10.8) x10^3/uL RBC (4.20-5.40) 10^6/uL Hgb (12.0-16.0) g/dL Hct (37.0-47.0) % MCV (81.0-99.0) fL MCH (27.0-31.0) pg MCHC (32.0-36.0) g/dL RDW (12.0-15.0) % Plt Count (130-450) 10^3/uL MPV (7.9-10.8) fL Neut # (Auto) (1.5-6.6) 10^3/uL Lymph # (Auto) (1.5-3.5) 10^3/uL [place] # (Auto) (0.0-1.0) 10^3/uL Eos # (Auto) (0.0-0.7) 10^3/uL Baso # (Auto) (0.0-0.1) 10^3/uL Absolute Nucleated RBC x10^3/uL Nucleated RBC % /100WBC Sodium (135-145) mmol/L Potassium (3.5-5.0) mmol/L Chloride (101-111) mmol/L Carbon Dioxide (21-32) mmol/L Anion Gap (6-13) BUN (6-20) mg/dL Creatinine (0.4-1.0) mg/dL Estimated GFR (MDRD) (>89) Glucose (70-100) mg/dL Lactic Acid 0.6 (0.5-2.2) mmol/L Calcium (8.5-10.3) mg/dL Troponin I High Sens 3.2 (2.3-14.8) ng/L ABX Reporting Has patient been on IV antibiotics over the past 48 hours?: Yes Assessment/Plan - Problem List (1) Cellulitis of left hand Impression: The area of erythema continues to extend past the markings despite IV antibiotics. Her white count has normalized and she has not had a fever for over 24 hours. Given the progression of her erythema along with continued pain, We will obtain imaging of the extremity to rule out an abscess or deeper infection. As there may be concern for pyomyositis, we will obtain an MRI of the left hand with and without contrast after discussion with radiology. We will continue on clindamycin and ciprofloxacin IV given her penicillin allergy. Continue to monitor her white count and temperature. (2) Dog bite of left hand with infection Impression: Given the persistent cellulitis that continues to extend, we will obtain imaging of her left hand with MRI to evaluate for deeper infection that might need debridement. We will continue her on IV antibiotics. I discussed the case with orthopedics over the phone and based off of imaging, she may potentially need to be transferred to a higher level of care as we do not have orthopedic specialty available here on a daily basis. Qualifiers: Encounter type: subsequent encounter Qualified Code(s): S61.452D - Open bite of left hand, subsequent encounter; L08.9 - Local infection of the skin and subcutaneous tissue, unspecified; W54.0XXD - Bitten by dog, subsequent encounter (3) Chest pain Impression: She had chest pain about 24 hours ago which has since resolved. Her EKG reveals sinus rhythm without any acute abnormalities. Her troponins have been negative. An echocardiogram has been ordered and is pending. Continue to monitor for the time being. There is low suspicion for ACS at the moment. (4) Hypertension Impression: She has been hypertensive during this hospitalization. Given she has does not appear septic at the moment, we will resume her home amlodipine. (5) Migraine Impression: She continues to complain of headache which is likely acutely worsened due to her active infection. She has no longer nauseous and is able to tolerate a diet. We will continue her home Topamax and Imitrex injection as needed. We will also continue Fioricet as needed. Qualifiers: Migraine type: unspecified Status migrainosus presence: without status migrainosus Intractability: not intractable Qualified Code(s): G43.909 - Migraine, unspecified, not intractable, without status migrainosus (6) Hyperlipidemia Impression: Stable. Continue Lipitor. (7) Hypothyroidism Impression: Stable. Continue Synthroid.
[2019-08-07] MEDS ORDERED: BUTALB/ACETAM/CAFF 50/325/40MG TABLET PO PRN (11:14)
[2019-08-07] MEDS ORDERED: GADOBUTROL 7.5 MMOL/7.5 ML VIAL IVP ONE (11:51)
[2019-08-07] MEDS: amLODIPine 5 MG TABLET PO SCH (12:22)
--- NOTE | 2019-08-07 12:33 | MRI Report ---
Reason: Soft tissue infection. Cellulitis. Procedure Date: 08/07/2019 Accession Number: [id number] / [id number] Procedure: MRI - Hand LT W/WO CPT Code: Final Report FULL RESULT: EXAM: LEFT HAND MRI WITHOUT AND WITH CONTRAST EXAM DATE: 08/07/2019 12:10 PM. CLINICAL HISTORY: Soft tissue infection. Cellulitis. Previous dog bite injury. COMPARISON: HAND 3 VIEW LT 08/05/2019 10:29 PM. TECHNIQUE: Multiplanar, multisequence T1-weighted and fluid-sensitive sequences of the hand before and after administration of intravenous contrast. IV contrast: 6 cc Gadavist. Other: None. FINDINGS: Subcutaneous edema, swelling, and enhancement mostly at the dorsal aspect of the hand, dorsal aspect of the thumb, and at the first web space. No evidence of abscess. No evidence of osteomyelitis. The trapezium is absent. Osteophytes at the base of the first metacarpal. Probable postoperative changes at the base of the first metacarpal. Mild first MCP joint osteoarthritis. Small to moderate sized distal radial ulnar joint effusion. Small radiocarpal joint effusion. Small first MCP joint effusion. Ligaments: The visualized collateral ligaments are intact. Tendons: Mild extensor digitorum, extensor pollicis longus, extensor carpi radialis longus and brevis tenosynovitis. No tendon tear. Musculature: Mild edema and enhancement at the dorsal aspect of the first interosseous muscle, adductor pollicis muscle, and thenar muscles. Other: IMPRESSION: 1. Subcutaneous edema, swelling, and enhancement mostly at the dorsal aspect of the hand, dorsal aspect of the thumb, and first web space suggestive of cellulitis. No definite drainable abscess is seen. 2. No evidence of vasculitis. 3. Small to moderate sized distal radial ulnar joint, small radiocarpal joint, and small first MCP joint effusions. 4. Mild extensor digitorum, extensor pollicis longus, extensor carpi radialis longus and brevis tenosynovitis. 5. Mild edema and enhancement within the dorsal aspect of the first interosseous muscle, adductor pollicis muscle, and thenar muscles suggestive of strain, contusion, or myositis. 6. Surgically absent trapezium. Osteophytes and probable postoperative changes at the base of the first metacarpal. RADIA
[2019-08-07] MEDS: ATORVASTATIN 10 MG TABLET PO SCH (20:18)
[2019-08-07] MEDS: AMITRIPTYLINE 25 MG TABLET PO SCH (20:18)
[2019-08-08] MEDS: SODIUM CHLORIDE FLUSH 0.9% 10 ML SYRINGE IVP SCH ×4 (00:03→23:55)
[2019-08-08] MEDS: CIPROFLOXACIN 400 MG/200 ML 200 ML IV SCH ×2 (00:28→13:03)
[2019-08-08] MEDS: HYDROcod/ACETAM 5/325 MG TABLET PO PRN ×2 (04:14→09:42)
[2019-08-08 05:29] LABS: BASOPHILS % (AUTO) 0.7 %; EOSINOPHILS # (AUTO) 0.5 10^3/uL (0.0-0.7); EOSINOPHILS % (AUTO) 7.7 %; LYMPHOCYTES # (AUTO) 1.2 10^3/uL (1.5-3.5); LYMPHOCYTES % (AUTO) 19.3 %; MEAN CORPUSCULAR HEMOGLOBIN 31.1 pg (27.0-31.0); MEAN CORPUSCULAR HGB CONC 32.5 g/dL (32.0-36.0); MEAN CORPUSCULAR VOLUME 95.7 fL (81.0-99.0); MEAN PLATELET VOLUME 9.7 fL (7.9-10.8); MONOCYTES # (AUTO) 0.4 10^3/uL (0.0-1.0); MONOCYTES % (AUTO) 6.7 %; NEUTROPHILS # (AUTO) 3.9 10^3/uL (1.5-6.6); NEUTROPHILS % (AUTO) 65.1 %; PLT - PLATELET COUNT 196 10^3/uL (130-450); RED BLOOD COUNT 3.22 10^6/uL (4.20-5.40); RED CELL DISTRIBUTION WIDTH 13.1 % (12.0-15.0)
[2019-08-08 05:47] LABS: CALCIUM 8.4 mg/dL (8.5-10.3); CREATININE 0.8 mg/dL (0.4-1.0); CRP - C-REACTIVE PROTEIN 12.1 mg/dL (0-1.0)
[2019-08-08] MEDS: CLINDAMYCIN 600 MG/50 ML 50 ML IV SCH ×4 (06:07→23:37)
[2019-08-08] MEDS: FAMOTIDINE 20 MG/2 ML VIAL IVP SCH (09:03)
[2019-08-08] MEDS: polyethylene glycoL 3350 17 GM PACKET PO SCH ×2 (09:03→11:25)
[2019-08-08] MEDS: amLODIPine 5 MG TABLET PO SCH (09:03)
[2019-08-08] MEDS: LEVOTHYROXINE 25 MCG TABLET PO SCH (09:03)
[2019-08-08] MEDS: ENOXAPARIN 40 MG/0.4 ML SYRINGE SUBQ SCH (09:03)
[2019-08-08] MEDS: TOPIRAMATE 100 MG TABLET PO SCH ×2 (09:03→20:13)
--- NOTE | 2019-08-08 12:17 | PROVIDER PROGRESS NOTE ---
Subjective - Prog Note Date Prog Note Date: 08/08/19 - Subjective Subjective: Reports the pain in her left arm has improved but is still present. Her swelling has decreased in her left hand and her range of motion has improved. She still has erythema that has not decreased in size although the area of cellulitis is less erythematous. Current Medications - Current Medications Current Medications: Active Medications Acetaminophen/Butalbital/Caffeine (Fioricet) 1 tab PO Q4HR PRN PRN Reason: HEADACHE Hydrocodone Bitart/Acetaminophen (Franklin 5/325) 1 tab PO Q4HR PRN PRN Reason: Pain 5 to 7 Last Admin: 08/08/19 09:42 Dose: 1 tab Amitriptyline HCl (Elavil) 100 mg PO QPM [facility] Last Admin: 08/07/19 20:18 Dose: 100 mg Amlodipine Besylate (Norvasc) 5 mg PO DAILY [facility] Last Admin: 08/08/19 09:03 Dose: 5 mg Atorvastatin Calcium (Lipitor) 20 mg PO QPM [facility] Last Admin: 08/07/19 20:18 Dose: 20 mg Enoxaparin Sodium (Lovenox) 40 mg SUBQ DAILY [facility] Last Admin: 08/08/19 09:03 Dose: 40 mg Famotidine (Pepcid) 20 mg IVP DAILY [facility] Last Admin: 08/08/19 09:03 Dose: 20 mg Clindamycin Phosphate (Cleocin 600 Mg/50 Ml) 50 mls @ 100 mls/hr IV Q6HR [facility] Last Admin: 08/08/19 12:14 Dose: 100 mls/hr Ciprofloxacin (Cipro 400 Mg/200 Ml) 200 mls @ 200 mls/hr IV Q12H [facility] Last Infusion: 08/08/19 02:16 Dose: Infused Levothyroxine Sodium (Synthroid) 12.5 mcg PO DAILY [facility] Last Admin: 08/08/19 09:03 Dose: 12.5 mcg Ondansetron HCl (Zofran Inj) 4 mg IVP Q4H PRN PRN Reason: Nausea / Vomiting Last Admin: 08/06/19 20:45 Dose: 4 mg Polyethylene Glycol (Miralax) 17 gm PO DAILY [facility] Last Admin: 08/08/19 11:25 Dose: Not Given Sodium Chloride (Normal Saline Flush 0.9%) 10 ml IVP PRN PRN PRN Reason: NEEDED PER PROVIDER ORDERS Last Admin: 08/06/19 20:52 Dose: 10 ml Sodium Chloride (Normal Saline Flush 0.9%) 10 ml IVP 0100,0900,1700 [facility] Last Admin: 08/08/19 09:03 Dose: 10 ml Sumatriptan Succinate (Imitrex Inj) 6 mg SUBQ DAILY PRN PRN Reason: HEADACHE Last Admin: 08/06/19 15:58 Dose: 6 mg Topiramate (Topamax) 100 mg PO BID [facility] Last Admin: 08/08/19 09:03 Dose: 100 mg Topiramate 100 mg PO BID 10/26/13 Sumatriptan Inj [Imitrex Inj] 6 mg INJ DAILY PRN 06/12/14 Albuterol Sulf [Ventolin Hfa Inhaler] 1 - 2 puffs INH Q4HR PRN 02/12/18 Amitriptyline HCl 100 mg PO QPM 02/12/18 Atorvastatin Calcium 20 mg PO DAILY 02/12/18 EPINEPHrine [Epipen 2-Haroon] 0.3 mg IM PRN PRN 02/12/18 Metoprolol Tartrate 50 mg PO BID 02/12/18 Pantoprazole [Protonix] 40 mg PO DAILY 02/12/18 amLODIPine [Norvasc] 5 mg PO DAILY 02/12/18 Ascorbic Acid [Vitamin C] 500 mg PO DAILY 08/06/19 Butalb/Acetaminophen/Caffeine [Pcomnk-Oysyfvxc-Jips 50-325-40] 1 tab PO DAILY PRN 08/06/19 Calcium Carbonate 500 mg PO DAILY 08/06/19 Cyanocobalamin (Vitamin B-12) [Vitamin B-12] 3,000 mcg PO DAILY 08/06/19 Famotidine 20 mg PO BID 08/06/19 Folic Acid 0.4 mg PO DAILY 08/06/19 Levothyroxine [Synthroid] 12.5 mcg PO DAILY 08/06/19 Multivitamin [Theragran] 1 tab PO DAILY 08/06/19 Objective - Vital Signs/Intake & Output Reviewed Vital Signs: Yes Vital Signs: Vital Signs x48h Temp Pulse Resp BP Pulse Ox 08/08/19 08:35 36.7 C 79 16 126/70 100 Intake & Output: Intake & Output 08/05/19 08/06/19 08/07/19 08/08/19 23:59 23:59 23:59 23:59 Intake Total 100 3971.667 4803.750 1460 Balance 100 3971.667 4803.750 1460 - Objective General Appearance: positive: No acute distress, Alert Eyes Bilateral: positive: Normal inspection, Conjunctivae nml ENT: positive: ENT inspection nml Neck: positive: Nml inspection Respiratory: positive: No respiratory distress. negative: Wheezes, Rales, Rhonchi Cardiovascular: positive: Regular rate & rhythm, No murmur. negative: Tachycardia, Bradycardia Abdomen: positive: Non-tender, No distention. negative: Tenderness Skin: positive: Other (The area of erythema extending from her left hand up to nearly her elbow. It is slightly less erythematous but the extent and size of the erythema has not decreased compared to yesterday. There is less edema in her left hand.) Extremities: positive: Full ROM Neurologic/Psychiatric: positive: Oriented x3. negative: Disoriented to person, Disoriented to place, Disoriented to time - Lab Results Fish Bones: 08/08/19 05:15 08/08/19 05:15 Other Labs: Lab Results x24hrs 08/08/19 08/08/19 08/08/19 Range/Units 05:15 05:15 05:15 WBC 6.0 (4.8-10.8) x10^3/uL RBC 3.22 L (4.20-5.40) 10^6/uL Hgb 10.0 L (12.0-16.0) g/dL Hct 30.8 L (37.0-47.0) % MCV 95.7 (81.0-99.0) fL MCH 31.1 H (27.0-31.0) pg MCHC 32.5 (32.0-36.0) g/dL RDW 13.1 (12.0-15.0) % Plt Count 196 (130-450) 10^3/uL MPV 9.7 (7.9-10.8) fL Neut # (Auto) 3.9 (1.5-6.6) 10^3/uL Lymph # (Auto) 1.2 L (1.5-3.5) 10^3/uL [place] # (Auto) 0.4 (0.0-1.0) 10^3/uL Eos # (Auto) 0.5 (0.0-0.7) 10^3/uL Baso # (Auto) 0.0 (0.0-0.1) 10^3/uL Absolute Nucleated RBC 0.00 x10^3/uL Nucleated RBC % 0.0 /100WBC ESR 46 H (0-30) mm/Hr Sodium 139 (135-145) mmol/L Potassium 3.7 (3.5-5.0) mmol/L Chloride 115 H (101-111) mmol/L Carbon Dioxide 17 L (21-32) mmol/L Anion Gap 7.0 (6-13) BUN 8 (6-20) mg/dL Creatinine 0.8 (0.4-1.0) mg/dL Estimated GFR (MDRD) 71 L (>89) Glucose 110 H (70-100) mg/dL Calcium 8.4 L (8.5-10.3) mg/dL C-Reactive Protein 12.1 H (0-1.0) mg/dL ABX Reporting Has patient been on IV antibiotics over the past 48 hours?: Yes Assessment/Plan - Problem List (1) Cellulitis of left hand Impression: The area of erythema has not extended but it also has not decreased. Fortunately does have decrease in her edema and pain so there is clinical improv ement. Her white count is also normal and she has been afebrile. MRI of the hand yesterday showed soft tissue swelling and edema but no obvious abscess or joint involvement. Her ESR is elevated at 46 and her CRP is elevated at 12. Given there has not been a decrease in her erythema, we will keep her 1 more night for IV antibiotics. I am hopeful she will discharge tomorrow on oral antibiotics to complete 2 weeks of therapy. We will check a CRP in the morning to make sure it is also trending down (2) Dog bite of left hand with infection Impression: The edema in her left hand near the incision has improved although the area is still erythematous. She was evaluated by wound care and she will continue with dressing changes on a daily basis. Wound cultures are pending. We will keep her on clindamycin and ciprofloxacin IV for the time being. Will consider de- escalating based off of cultures always may be difficult given her allergies. Qualifiers: Encounter type: subsequent encounter Qualified Code(s): S61.452D - Open bite of left hand, subsequent encounter; L08.9 - Local infection of the skin and subcutaneous tissue, unspecified; W54.0XXD - Bitten by dog, subsequent encounter (3) Chest pain Impression: This has resolved. Her EKG and troponin were unremarkable. Echocardiogram was also unremarkable. (4) Hypertension Impression: Her blood pressure has improved with her amlodipine being restarted but she is still slightly hypertensive. We will resume her metoprolol as well. (5) Migraine Impression: Stable. Continue with her Imitrex and Fioricet as needed. Qualifiers: Migraine type: unspecified Status migrainosus presence: without status migrainosus Intractability: not intractable Qualified Code(s): G43.909 - Migraine, unspecified, not intractable, without status migrainosus (6) Hyperlipidemia Impression: Stable. Continue her home Lipitor. (7) Hypothyroidism Impression: Stable. Continue her home Synthroid.
[2019-08-08] MEDS: AMITRIPTYLINE 25 MG TABLET PO SCH (20:12)
[2019-08-08] MEDS: METOPROLOL TARTRATE 50 MG TABLET PO SCH (20:12)
[2019-08-08] MEDS: ATORVASTATIN 10 MG TABLET PO SCH (20:13)
[2019-08-09] MEDS: CIPROFLOXACIN 400 MG/200 ML 200 ML IV SCH ×2 (00:14→11:13)
[2019-08-09 05:23] LABS: BASOPHILS % (AUTO) 0.6 %; EOSINOPHILS # (AUTO) 0.6 10^3/uL (0.0-0.7); EOSINOPHILS % (AUTO) 12.8 %; HGB - HEMOGLOBIN 10.5 g/dL (12.0-16.0); LYMPHOCYTES # (AUTO) 1.3 10^3/uL (1.5-3.5); LYMPHOCYTES % (AUTO) 26.1 %; MEAN CORPUSCULAR HEMOGLOBIN 31.3 pg (27.0-31.0); MEAN CORPUSCULAR HGB CONC 32.6 g/dL (32.0-36.0); MEAN CORPUSCULAR VOLUME 95.8 fL (81.0-99.0); MEAN PLATELET VOLUME 9.5 fL (7.9-10.8); MONOCYTES # (AUTO) 0.5 10^3/uL (0.0-1.0); MONOCYTES % (AUTO) 10.4 %; NEUTROPHILS # (AUTO) 2.5 10^3/uL (1.5-6.6); NEUTROPHILS % (AUTO) 49.7 %; PLT - PLATELET COUNT 217 10^3/uL (130-450); RED BLOOD COUNT 3.36 10^6/uL (4.20-5.40); RED CELL DISTRIBUTION WIDTH 13.2 % (12.0-15.0)
[2019-08-09 05:43] LABS: CALCIUM 9.1 mg/dL (8.5-10.3); CREATININE 0.9 mg/dL (0.4-1.0); CRP - C-REACTIVE PROTEIN 7.8 mg/dL (0-1.0)
[2019-08-09] MEDS: CLINDAMYCIN 600 MG/50 ML 50 ML IV SCH (05:52)
--- NOTE | 2019-08-09 08:10 | Discharge Plan ---
Discharge Plan Problem Reviewed?: Yes Disposition: Home, Self Care Condition: Good Prescriptions: Ciprofloxacin HCl 750 mg PO BID #14 tablet Hydrocodone/Acetaminophen [Hydrocodone-Acetamin 5-325 mg] 1 each PO Q6H PRN #10 tablet PRN Reason: Pain Diet: Regular Shower Restrictions: No Driving Restrictions: No Health Concerns: You were seen in the hospital for an infection of your left hand and forearm. You were treated with IV antibiotics with improvement in your symptoms. We also did an MRI of your hand to make sure there was no deep infection and this was negative. As you have improved, you are now stable for discharge to home. Please continue to take the antibiotics as prescribed. See your PCP in follow-up in the next 5 to 7 days to check the infected area, adjustment in medications may still be needed. Plan of Treatment: Please take the clindamycin 300 mg 4 times a day until next Tuesday, August 15. Please take the ciprofloxacin 700 mg 2 times a day until next August 15. You were prescribed 10 tablets of hydrocodone which you may take every 6 hours as needed for pain. Care Goals: Please follow-up with your primary care physician within 1 week to make sure your wound is healing well. Assessment: Patient understands and is agreeable with the plan. Additional Instructions or Follow Up instructions: If you have new or worsening symptoms, call your PCP for advice or come to the ER. No Smoking: If you smoke, Please STOP! Call for help. Follow-up with: SUGEY CHAUDHRY MD [Primary Care Provider] -
--- NOTE | 2019-08-09 08:42 | DISCHARGE SUMMARY ---
"Discharge Summary Admit Date: 08/05/19 Discharge Date: 08/09/19 Discharging Provider: Dimitrios Mendosa Primary Care Provider: Dane Trevino Code Status: Attempt Resuscitation Condition at Discharge: Good Discharge Disposition: 01 Home, Self Care - DIAGNOSES Admission Diagnoses: Cellulitis of left hand Dog bite of left hand with infection Hypertension Hyperlipidemia GERD Migraine Discharge Diagnoses with Status of Each Condition: Cellulitis of left hand - improved. She was treated with IV clindamycin and ciprofloxacin IV while hospitalized. The erythema continued to spread over the first 2 days despite IV antibiotics. MRI of the hand was obtained to evaluate for deep infection or possible abscess. This was unremarkable. She was continued on clindamycin ciprofloxacin given her penicillin allergy and her white count improved and the erythema significantly improved on her third and fourth days of hospitalization. Her CRP is also trending down. She will be discharged on ciprofloxacin p.o. and clindamycin p.o. to complete 10 days of antibiotic therapy. She was only given a prescription for ciprofloxacin as she still has clindamycin at home from before she was hospitalized. Dog bite of left hand with infection - stable. Wound care evaluated the patient's wound over the dorsum of the left hand superior to the thumb. She will continue with dressing changes on a daily basis. I have asked her to keep the wound dry. She was provided with 10 tablets of hydrocodone for pain. Chest pain - resolved. She had sudden onset chest pain on hospital day 2. Her EKG did not show ischemic changes and her troponins were negative. An echocardiogram was obtained which was also unremarkable. Her pain resolved on its own. The etiology is not clear as she felt that is different than her usual GERD. She will continue to follow-up with her primary care physician. Hypertension - stable. She will continue her home metoprolol and amlodipine. Migraine - stable. She will continue her home Topamax, Imitrex, Fioricet. Hyperlipidemia - stable. She will continue her home Lipitor. Hypothyroidism - stable. She will continue home Synthroid. - HPI History of Present Illness: H&P per Dr. Lagos on 08/05/19: Patient is a 69 y/o female who presented to the ED with left hand swelling, redness and pain. She was bitten by her 's dog today morning. It is a 17 y/o dog. It had gone out of the house and got confused. on trying to return it went to the neighbors house. She was trying to get the dog back to their house so she tried to lift the dog when it nipped at her hand. She was seen in the ED earlier in the day and was given a dose of clindamycin and a tetanus shot. She was discharged home with a prescription of clindamycin and would have been due for her next dose by 10pm. However the redness increased beyond the demarcated borders, she started shivering and experiencing more pain in the area so she presented to the ED around 9pm. She had a WBC of 14. As a result of the worsening redness, she was presented for admission. She denied chest pain, dyspnea, abdominal pain, nausea or vomiting. - CONSULTS | PROCEDURES Consultations: Wound care Procedures: MRI the left hand was obtained which did not show any joint involvement or deep infection including abscess. Echocardiogram was also obtained which was unremarkable. - HOSPITAL COURSE Hospital Course: She was admitted to the hospital for left hand cellulitis secondary to a dog bite. She had failed outpatient therapy with clindamycin. Given her penicillin allergy, she was continued on clindamycin IV and ciprofloxacin IV. The following day she developed severe nausea and was unable to tolerate oral intake and therefore she remained hospitalized on IV antibiotics. Her white count continued to trend down with IV antibiotics. On the third day of hospitalization, the erythema and her left hand had extended proximally nearly to her elbow. Discharge was therefore delayed and MRI of the left hand was obtained to evaluate for deep infection such as pyomyositis or abscess. This was unremarkable and imaging was consistent with cellulitis. She remained on IV antibiotics and the following day there was no progression of erythema but it had also not decreased. She was then kept hospitalized for 1 more day of IV antibiotic therapy and she had significant improvement in her erythema, edema, pain of the left hand and forearm. Her CRP is also trending down and her white count remains normal. She will be discharged home on oral clindamycin and ciprofloxacin to complete 10 days of therapy. She is also provided with 10 tablets of hydrocodone for pain control. She was asked to follow-up with her primary care physician in 1 week and to return to emergency department if she had worsening symptoms. - ALLERGIES Allergies/Adverse Reactions: Allergies Allergy/AdvReac Type Severity Reaction Status Date / Time cefuroxime axetil * Allergy Severe Hives Verified 08/05/19 22:02 [From Ceftin] ibuprofen [From Motrin] Allergy Severe Hives Verified 08/05/19 22:02 Penicillins Allergy Severe Hives Verified 08/05/19 22:02 losartan potassium * Allergy Intermediate Rash Verified 08/05/19 22:02 [From Cozaar] avocado Allergy Unknown Verified 08/05/19 22:02 cashew nut Allergy Unknown Verified 08/05/19 22:02 desipramine Allergy Hives Verified 08/05/19 22:02 hazelnut Allergy Unknown Verified 08/05/19 22:02 indomethacin Allergy Hives Verified 08/05/19 22:02 losartan [From Cozaar] Allergy Hives Verified 08/05/19 22:02 pecan nut Allergy Unknown Verified 08/05/19 22:02 sesame oil Allergy Anaphylaxis Verified 08/05/19 22:02 sesame seed Allergy Anaphylaxis Verified 08/05/19 22:02 bupropion HCl * AdvReac Severe Anxiety Verified 08/05/19 22:02 [From Wellbutrin] - MEDICATIONS Home Medications: Ambulatory Orders Medication Instructions Recorded Confirmed Topiramate 100 mg PO BID 10/26/13 08/06/19 Sumatriptan Inj [Imitrex Inj] 6 mg INJ DAILY PRN 06/12/14 08/06/19 Albuterol Sulf [Ventolin Hfa 1 - 2 puffs INH Q4HR PRN 02/12/18 08/06/19 Inhaler] Amitriptyline HCl 100 mg PO QPM 02/12/18 08/06/19 Atorvastatin Calcium 20 mg PO DAILY 02/12/18 08/06/19 EPINEPHrine [Epipen 2-Haroon] 0.3 mg IM PRN PRN 02/12/18 08/06/19 Metoprolol Tartrate 50 mg PO BID 02/12/18 08/06/19 Pantoprazole [Protonix] 40 mg PO DAILY 02/12/18 08/06/19 amLODIPine [Norvasc] 5 mg PO DAILY 02/12/18 08/06/19 Clindamycin HCl [Clindamycin 300MG 300 mg PO Q6H #40 capsule 08/05/19 08/06/19 CAP] Ascorbic Acid [Vitamin C] 500 mg PO DAILY 08/06/19 08/06/19 Butalb/Acetaminophen/Caffeine 1 tab PO DAILY PRN 08/06/19 08/06/19 [Lwswjy-Mhmvfwbv-Pgjk 50-325-40] Calcium Carbonate 500 mg PO DAILY 08/06/19 08/06/19 Cyanocobalamin (Vitamin B-12) 3,000 mcg PO DAILY 08/06/19 08/06/19 [Vitamin B-12] Famotidine 20 mg PO BID 08/06/19 08/06/19 Folic Acid 0.4 mg PO DAILY 08/06/19 08/06/19 Levothyroxine [Synthroid] 12.5 mcg PO DAILY 08/06/19 08/06/19 Multivitamin [Theragran] 1 tab PO DAILY 08/06/19 08/06/19 Ciprofloxacin HCl 750 mg PO BID #14 tablet 08/09/19 Hydrocodone/Acetaminophen 1 each PO Q6H PRN #10 tablet 08/09/19 [Hydrocodone-Acetamin 5-325 mg] - PHYSICAL EXAM AT DISCHARGE General Appearance: positive: No acute distress, Alert Eyes Bilateral: positive: Normal inspection, Conjunctivae nml ENT: positive: ENT inspection nml Neck: positive: Nml inspection Respiratory: positive: No respiratory distress. negative: Wheezes, Rales, Rhonchi Cardiovascular: positive: Regular rate & rhythm, No murmur. negative: Tachycardia, Bradycardia Abdomen: positive: Non-tender, No distention. negative: Tenderness, Guarding, Rebound Skin: positive: Warm, Dry, Other (There is significant improvement in the eryt radha. There is now only minimal erythema present over the proximal portion of the left forearm. The edema has also decreased. Her range of motion has increased in her left hand. The wound present over the dorsum of the hand superior to the thumb has only minimal drainage. Dressing is in place over the wound.) Extremities: positive: Full ROM, No pedal edema Neurologic/Psychiatric: positive: Oriented x3, Motor nml. negative: Disoriented to person, Disoriented to place, Disoriented to time - LABS Result Diagrams: 08/09/19 05:10 08/09/19 05:10 - DIAGNOSTIC IMAGING Diagnostic Imaging Results: Final report reviewed - FOLLOW UP Follow Up: She was asked to follow-up with her primary care physician within 1 week for a wound check. She was also asked to return to emergency department if she had worsening symptoms including fever, chills, worsening pain or erythema of the left arm. - TIME SPENT Time Spent in Discharge (Minutes): 35"
[2019-08-09 08:50] VITALS: BP 127/68
[2019-08-09] MEDS: LEVOTHYROXINE 25 MCG TABLET PO SCH (08:53)
[2019-08-09] MEDS: ENOXAPARIN 40 MG/0.4 ML SYRINGE SUBQ SCH (08:53)
[2019-08-09] MEDS: amLODIPine 5 MG TABLET PO SCH (08:53)
[2019-08-09] MEDS: TOPIRAMATE 100 MG TABLET PO SCH (08:53)
[2019-08-09] MEDS: FAMOTIDINE 20 MG/2 ML VIAL IVP SCH (08:53)
[2019-08-09] MEDS: METOPROLOL TARTRATE 50 MG TABLET PO SCH (08:54)
[2019-08-09] MEDS: polyethylene glycoL 3350 17 GM PACKET PO SCH (08:55)
[2019-08-09] MEDS: SODIUM CHLORIDE FLUSH 0.9% 10 ML SYRINGE IVP SCH (08:56)
== END 2019-08-09 12:25 | disposition home or self-care (01) | DRG 603 ==
LOC: ED 21:51 → MS2 23:38 → OBSVTOIN 08-06 15:52
PROVIDERS: ADMIT Internal Medicine; ATTEND Internal Medicine
DX: L03.114 Cellulitis of left upper limb (principal); S61.452A Open bite of left hand, initial encounter; W54.0XXA Bitten by dog, initial encounter; Y92.009 Unspecified place in unspecified non-institutional (private) residence as the place of occurrence of the external cause; R11.0 Nausea; R07.9 Chest pain, unspecified; I10 Essential (primary) hypertension; E78.5 Hyperlipidemia, unspecified; E03.9 Hypothyroidism, unspecified; K21.9 Gastro-esophageal reflux disease without esophagitis; M19.90 Unspecified osteoarthritis, unspecified site; G43.909 Migraine, unspecified, not intractable, without status migrainosus; Z88.1 Allergy status to other antibiotic agents; Z79.82 Long term (current) use of aspirin; Z79.52 Long term (current) use of systemic steroids; Z79.51 Long term (current) use of inhaled steroids
CPT/HCPCS: 36415; 73130; 73220; 80048; 80053; 81599; 83605; 83615; 83690; 84484; 85025; 85610; 85651; 85730; 86140; 87040; 87070; 87077; 87205; 93005; 93306; 96361; 96365; 96366; 96367; 96372; 96375; 96376; A9270; A9585; G0378; J1170; J1200; J1650; J3370

== ENCOUNTER 2020-06-03 10:30 | Outpatient (CLI) | payer MEDICARE, OTHER | END 2020-06-03 23:59 | disposition home or self-care (01) | LOC: COV 10:30 | PROVIDERS: ATTEND Family Medicine | DX: R05 Cough (principal); R06.02 Shortness of breath; R09.81 Nasal congestion; R53.83 Other fatigue; Z20.828 Contact with and (suspected) exposure to other viral communicable diseases ==

== ENCOUNTER 2020-08-18 13:00 | Outpatient (CLI) | payer MEDICARE, OTHER ==
--- NOTE | 2020-08-19 11:08 | Mammography Report ---
BILATERAL DIGITAL SCREENING MAMMOGRAM 3D/2D WITH AUGMENTATION: 08/18/2020 CLINICAL: Family history of breast cancer. Routine screening. Comparison is made to exams dated: 07/31/2019 mammogram, 04/10/2018 mammogram, and 03/29/2017 mammogr am - [facility]. There are scattered fibroglandular elements in both breasts. Bilateral breast implants are stable and intact. No significant masses, calcifications, or other findings are seen in either breast. There has been no significant interval change. IMPRESSION: NEGATIVE There is no mammographic evidence of malignancy. A 1 year screening mammogram is recommended. This exam was interpreted at Station ID: [id number]. NOTE: For mammograms, a report in lay terms will be sent to the patient. Approximately 15% of breast malignancies will not be visualized mammographically. In the management of a palpable breast mass, a negative mammogram must not discourage biopsy of a clinically suspicious lesion. Electronically Signed By: Lorenzo Lockhart M.D. slc/penrad:08/18/2020 17:55:32 ACR BI-RADS Category 1: Negative 3341F PARENCHYMAL PATTERN: (A) - The breast(s) demonstrate(s) scattered fibroglandular densities. BI-RADS CATEGORY: (1) - 1 RECOMMENDATION: (ANNUAL) - Recommend routine annual screening mammography. [id number] 1 year screening LATERALITY: (B)
== END 2020-08-18 13:01 | disposition home or self-care (01) ==
LOC: DI.N 13:00
DX: Z12.31 Encounter for screening mammogram for malignant neoplasm of breast (principal); Z80.3 Family history of malignant neoplasm of breast; Z98.82 Breast implant status

== ENCOUNTER 2020-08-20 18:00 | Outpatient (CLI) | payer MEDICARE, OTHER ==
[2020-08-20 18:31] LABS: BASOPHILS # (AUTO) 0.1 10^3/uL (0.0-0.1); EOSINOPHILS # (AUTO) 0.5 10^3/uL (0.0-0.7); EOSINOPHILS % (AUTO) 10.6 %; HCT - HEMATOCRIT 36.9 % (37.0-47.0); LYMPHOCYTES # (AUTO) 1.8 10^3/uL (1.5-3.5); LYMPHOCYTES % (AUTO) 36.9 %; MEAN CORPUSCULAR HEMOGLOBIN 31.3 pg (27.0-31.0); MEAN CORPUSCULAR HGB CONC 32.5 g/dL (32.0-36.0); MEAN CORPUSCULAR VOLUME 96.1 fL (81.0-99.0); MEAN PLATELET VOLUME 9.4 fL (7.9-10.8); MONOCYTES # (AUTO) 0.4 10^3/uL (0.0-1.0); MONOCYTES % (AUTO) 9.1 %; NEUTROPHILS % (AUTO) 42.4 %; PLT - PLATELET COUNT 308 10^3/uL (130-450); RED BLOOD COUNT 3.84 10^6/uL (4.20-5.40); RED CELL DISTRIBUTION WIDTH 13.2 % (12.0-15.0); WHITE BLOOD COUNT 4.8 x10^3/uL (4.8-10.8)
[2020-08-20 18:50] LABS: ALBUMIN 4.3 g/dL (3.2-5.5); ALBUMIN/GLOBULIN RATIO 1.1 (1.0-2.2); ALKALINE PHOSPHATASE 73 IU/L (42-121); ALT ALANINE AMINOTRANSFERASE 17 IU/L (10-60); AST ASPARTATE AMINOTRANSFERASE 20 IU/L (10-42); BILIRUBIN,TOTAL 0.4 mg/dL (0.2-1.0); BUN - BLOOD UREA NITROGEN 18 mg/dL (6-20); CALCIUM 9.7 mg/dL (8.5-10.3); CARBON DIOXIDE - CO2 22 mmol/L (21-32); CHLORIDE 108 mmol/L (101-111); CHOL/HDL RATIO 3.7 (<4.4); CHOLESTEROL 187 mg/dL; CREATININE 0.9 mg/dL (0.4-1.0); GFR - MDRD 62 (>89); GLUCOSE 114 mg/dL (70-100); HDL CHOLESTEROL 51 mg/dL; LDL CHOLESTEROL,CALCULATED 94 mg/dL; LDL/HDL RATIO 1.8 (<4.4); POTASSIUM 3.6 mmol/L (3.5-5.0); SODIUM 141 mmol/L (135-145); TOTAL PROTEIN 8.3 g/dL (6.7-8.2); TRIGLYCERIDES 210 mg/dL; VLDL CHOLESTEROL 42 mg/dL
[2020-08-20 18:58] LABS: THYROID STIMULATING HORMONE 2.23 uIU/mL (0.34-5.60)
== END 2020-08-20 18:01 | disposition home or self-care (01) ==
LOC: LAB 18:00
PROVIDERS: ATTEND Family Medicine
DX: I10 Essential (primary) hypertension (principal)
CPT/HCPCS: 36415; 80053; 80061; 83721; 84443; 85025

== ENCOUNTER 2021-02-16 08:00 | Outpatient (CLI) | payer MEDICARE, OTHER | END 2021-02-16 23:59 | LOC: LAB.N 08:00 | PROVIDERS: ATTEND Physician Assistant Medical | DX: J40 Bronchitis, not specified as acute or chronic (principal); Z20.822 Contact with and (suspected) exposure to COVID-19 ==

== ENCOUNTER 2021-03-14 08:00 | Outpatient (CLI) | payer MEDICARE, OTHER | END 2021-03-14 23:59 | LOC: LAB.N 08:00 | PROVIDERS: ATTEND Family Medicine | DX: R05 Cough (principal); Z20.822 Contact with and (suspected) exposure to COVID-19 ==

== ENCOUNTER 2021-03-16 10:54 | Outpatient (CLI) | payer MEDICARE, OTHER ==
--- NOTE | 2021-03-16 15:04 | XRAY Report ---
PROCEDURE: Chest 2 View X-Ray INDICATIONS: BRONCHITIS TECHNIQUE: 2 view(s) of the chest. COMPARISON: Chest x-ray 05/17/2019 FINDINGS: Surgical changes and devices: None. Lungs and pleura: No pleural effusions or pneumothorax. Lungs are clear. Mediastinum: Mediastinal contours are normal. Heart size is normal. Bones and chest wall: No suspicious bony abnormalities. Soft tissues appear unremarkable. IMPRESSION: No acute pulmonary process. Reviewed by: Maliha Dahl MD on 03/16/2021 3:03 PM PDT Approved by: Maliha Dahl MD on 03/16/2021 3:03 PM PDT Station ID: [id number]
== END 2021-03-16 10:55 ==
LOC: DI.N 10:54
PROVIDERS: ATTEND Physician Assistant Medical
DX: J40 Bronchitis, not specified as acute or chronic (principal)

== ENCOUNTER 2021-03-18 14:52 | Emergency (ER) | payer MEDICARE, OTHER ==
--- NOTE | 2021-03-18 16:18 | XRAY Report ---
PROCEDURE: Chest 1 View X-Ray INDICATIONS: Chest pain TECHNIQUE: One view of the chest was acquired. COMPARISON: None FINDINGS: Surgical changes and devices: None. Lungs and pleura: No pleural effusions or pneumothorax. Lungs are clear. Mediastinum: Mediastinal contours appear normal. Heart size is normal. Bones and chest wall: No suspicious bony lesions. Overlying soft tissues appear unremarkable. IMPRESSION: No acute cardiopulmonary process demonstrated radiographically. Reviewed by: Perry Machado MD on 03/18/2021 4:17 PM PDT Approved by: Perry Machado MD on 03/18/2021 4:17 PM PDT Station ID: [id number]
[2021-03-18] MEDS ORDERED: ALBUTEROL NEB 2.5 MG/3 ML INH STA (18:11)
[2021-03-18] MEDS ORDERED: predniSONE 20 MG TABLET PO STA (18:11)
--- NOTE | 2021-03-18 19:06 | ED Physician Documentation ---
History of Present Illness - Stated complaint Stated Complaint: WHEEZING,SOA,COUGH - Chief complaint Chief Complaint: Resp - Additonal information Additional information: 70-year-old female presents the emergency department for evaluation of cough and wheeze. Symptoms began about 1 week ago. She reports that she has a longstanding history of multiple allergies and is often wheezy. She has been using her albuterol at home without relief. She was previously prescribed Advair but has run out. She was seen at the walk-in clinic 2 days ago. Reportedly COVID-19 screen was negative. She was started on doxycycline for bronchitis but does not feel that the wheeze is better. She has had no fevers nausea or vomiting. Denies dyspnea or chest pain. She is not vaccinated for COVID-19 Review of Systems Constitutional: denies: Fever, Chills Ears: reports: Reviewed and negative Nose: reports: Rhinorrhea / runny nose, Congestion Throat: denies: Dental pain / toothache, Oral lesions / sores, Sore throat Cardiac: denies: Chest pain / pressure, Palpitations Respiratory: reports: Cough, Wheezing. 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 : None Psych: None Musculoskeletal: Osteoarthritis Derm: None - Past Surgical History Past Surgical History: Yes General: Hiatal hernia repair Ortho: Carpal Tunnel surgery /BANQUET SUPERVISOR: section, Hysterectomy - Present Medications Home Medications: Ambulatory Orders Medication Instructions Recorded Confirmed Topiramate 100 mg PO BID 10/26/13 08/06/19 Sumatriptan Inj [Imitrex Inj] 6 mg INJ DAILY PRN 06/12/14 08/06/19 Albuterol Sulf [Ventolin Hfa 1 - 2 puffs INH Q4HR PRN 02/12/18 08/06/19 Inhaler] Amitriptyline HCl 100 mg PO QPM 02/12/18 08/06/19 Atorvastatin Calcium 20 mg PO DAILY 02/12/18 08/06/19 EPINEPHrine [Epipen 2-Haroon] 0.3 mg IM PRN PRN 02/12/18 08/06/19 Metoprolol Tartrate 50 mg PO BID 02/12/18 08/06/19 Pantoprazole [Protonix] 40 mg PO DAILY 02/12/18 08/06/19 amLODIPine [Norvasc] 5 mg PO DAILY 02/12/18 08/06/19 Clindamycin HCl [Clindamycin 300MG 300 mg PO Q6H #40 capsule 08/05/19 08/06/19 CAP] Ascorbic Acid [Vitamin C] 500 mg PO DAILY 08/06/19 08/06/19 Butalb/Acetaminophen/Caffeine 1 tab PO DAILY PRN 08/06/19 08/06/19 [Eotarm-Ygbayoyp-Kovv 50-325-40] Calcium Carbonate 500 mg PO DAILY 08/06/19 08/06/19 Cyanocobalamin (Vitamin B-12) 3,000 mcg PO DAILY 08/06/19 08/06/19 [Vitamin B-12] Famotidine 20 mg PO BID 08/06/19 08/06/19 Folic Acid 0.4 mg PO DAILY 08/06/19 08/06/19 Levothyroxine [Synthroid] 12.5 mcg PO DAILY 08/06/19 08/06/19 Multivitamin [Theragran] 1 tab PO DAILY 08/06/19 08/06/19 Ciprofloxacin HCl 750 mg PO BID #14 tablet 08/09/19 Hydrocodone/Acetaminophen 1 each PO Q6H PRN #10 tablet 08/09/19 [Hydrocodone-Acetamin 5-325 mg] Benzonatate [Tessalon] 100 mg PO TID PRN #30 cap 03/18/21 Fluticasone/Salmeterol [Advair Hfa 8 gm IH DAILY #1 inhaler 03/18/21 115-21 Mcg Inhaler] predniSONE [Deltasone] 40 mg PO DAILY 4 Days #8 tablet 03/18/21 - Allergies Allergies/Adverse Reactions: Allergies Allergy/AdvReac Type Severity Reaction Status Date / Time cefuroxime axetil * Allergy Severe Hives Verified 03/18/21 15:16 [From Ceftin] ibuprofen [From Motrin] Allergy Severe Hives Verified 03/18/21 15:16 Penicillins Allergy Severe Hives Verified 03/18/21 15:16 losartan potassium * Allergy Intermediate Rash Verified 03/18/21 15:16 [From Cozaar] avocado Allergy Unknown Verified 03/18/21 15:16 cashew nut Allergy Unknown Verified 03/18/21 15:16 desipramine Allergy Hives Verified 03/18/21 15:16 hazelnut Allergy Unknown Verified 03/18/21 15:16 indomethacin Allergy Hives Verified 03/18/21 15:16 losartan [From Cozaar] Allergy Hives Verified 03/18/21 15:16 pecan nut Allergy Unknown Verified 03/18/21 15:16 sesame oil Allergy Anaphylaxis Verified 03/18/21 15:16 sesame seed Allergy Anaphylaxis Verified 03/18/21 15:16 bupropion HCl * AdvReac Severe Anxiety Verified 03/18/21 15:16 [From Wellbutrin] - Social History Does the pt smoke?: No Smoking Status: Never smoker Does the pt drink ETOH?: Yes Does the pt have substance abuse?: No - Immunizations Immunizations are current?: Yes - POLST Patient has POLST: No POLST Status: Full Code PD ED PE NORMAL - General General: Alert and oriented X 3, No acute distress - HEENT HEENT: PERRL, Moist mucous membranes, Pharynx benign, Dentition benign, Other (Copious clear nasal secretions) - Neck Neck: Supple, no meningeal sign, No adenopathy - Cardiac Cardiac: RRR, No murmur - Respiratory Respiratory: No respiratory distress, Clear bilaterally - Abdomen Abdomen: Normal bowel sounds, Soft - Back Back: No CVA TTP Results - Vitals Vitals: Vital Signs - 24 hr 03/18/21 03/18/21 15:12 18:55 Temperature 36.6 C Heart Rate 100 83 Respiratory 14 16 Rate Blood Pressure 138/71 H O2 Saturation 100 Oxygen O2 Source Room air - Rads (name of study) CXR Radiology: Final report received (No acute cardiopulmonary process) PD MEDICAL DECISION MAKING - ED course Complexity details: reviewed results, re-evaluated patient, d/w patient ED course: 70-year-old female who is unvaccinated for COVID-19 comes to the emergency department with 1 week of cough and wheeze. Currently out of Advair. Started on doxycycline for bronchitis by local walk-in clinic 2 days ago. COVID-19 test was negative on 14 March. Screening chest x-ray is unremarkable. No focal opacities. She is not hypoxic or tachypneic. She was mildly wheezy here in the emergency department which improved with a nebulizer. I suspect that she is having a reactive airway disease or asthma exacerbation. Patient will be started on a 5-day course of prednisone. First dose given here in the emergency department. I will also represcribe her Advair as well as some Tessalon Perles to help with cough. Encourage close follow-up with PCP and emergent return precautions were discussed. Departure - Departure Disposition: 01 Home, Self Care Clinical Impression: Cough, Wheeze Condition: Stable Record reviewed to determine appropriate education?: Yes Follow-Up: NAYE JAIN MD [Primary Care Provider] - Prescriptions: Fluticasone/Salmeterol [Advair Hfa 115-21 Mcg Inhaler] 8 gm IH DAILY #1 inhaler predniSONE [Deltasone] 40 mg PO DAILY 4 Days #8 tablet Benzonatate [Tessalon] 100 mg PO TID PRN #30 cap PRN Reason: Cough Comments: You were seen in the emergency department today for cough and congestion as well as wheeze. Your chest x-ray does not show any pneumonia. I suspect that you are having an asthma or reactive airway disease exacerbation. Please fill the prescription for the prednisone and begin taking daily for the next 4 days starting tomorrow. I have also written for Advair. Continue your albuterol at home. Tessalon Perles are medication that can help reduce the cough. It is okay to continue the course of doxycycline previously started by the walk- in clinic though I suspect that the steroids and steroid inhaler are going to help the most. If at any point you feel that your symptoms are worsening, you develop fevers higher than 103 or severely short of breath then please return immediately to the ER for a second evaluation
[2021-03-18 19:22] VITALS: BP 128/64
== END 2021-03-18 19:22 | disposition home or self-care (01) ==
LOC: ED 14:52
DX: R05 Cough (principal); R06.2 Wheezing; R09.89 Other specified symptoms and signs involving the circulatory and respiratory systems; I10 Essential (primary) hypertension
CPT/HCPCS: 71045; 94640; 94664; 99283; 99284; J7512

== ENCOUNTER 2021-09-01 12:36 | Outpatient (CLI) | payer MEDICARE, OTHER ==
--- NOTE | 2021-09-02 08:15 | Mammography Report ---
BILATERAL DIGITAL SCREENING MAMMOGRAM 3D/2D WITH AUGMENTATION: 09/01/2021 CLINICAL: Family history of breast cancer. Routine screening. Comparison is made to exams dated: 08/18/2020 mammogram - [facility], 07/31/2019 mamm ogram, 04/10/2018 mammogram, and 03/29/2017 mammogram - [facility]. There are scatter ed fibroglandular elements in both breasts. Bilateral breast implants are intact. No significant masses, calcifications, or other findings are seen in either breast. There has been no significant interval change. IMPRESSION: NEGATIVE There is no mammographic evidence of malignancy. A 1 year screening mammogram is recommended. This exam was interpreted at Station ID: [id number]. NOTE: For mammograms, a report in lay terms will be sent to the patient. Approximately 15% of breast malignancies will not be visualized mammographically. In the management of a palpable breast mass, a negative mammogram must not discourage biopsy of a clinically suspicious lesion. Electronically Signed By: Isacc Otero M.D. ddp/penrad:09/01/2021 16:26:18 ACR BI-RADS Category 1: Negative 3341F PARENCHYMAL PATTERN: (A) - The breast(s) demonstrate(s) scattered fibroglandular densities. BI-RADS CATEGORY: (1) - 1 RECOMMENDATION: (ANNUAL) - Recommend routine annual screening mammography. [id number] 1 year screening LATERALITY: (B)
== END 2021-09-01 12:37 | disposition home or self-care (01) ==
LOC: DI.N 12:36
DX: Z12.31 Encounter for screening mammogram for malignant neoplasm of breast (principal); Z80.3 Family history of malignant neoplasm of breast

== ENCOUNTER 2022-06-17 14:13 | Emergency (ER) | payer MEDICARE, OTHER ==
--- OUTSIDE RECORDS SUMMARY | 2022-06-17 14:50 | EXTERNAL MEDICAL SUMMARY RPT | Continuity of Care Document ---
:1950 Author Organization [facility] Address [address] [place] [address] Phone Care Team Providers Name Role Phone Unavailable Unavailable Unavailable Larry Hui Pa-C Unavailable Unavailable Allergies No information. Encounters No information. Functional Status No information. Immunizations No information. Medications date description facility 2022-06-17 00:00 famotidine All 2022-06-17 00:00 levothyroxine All 2022-06-17 00:00 amitriptyline All 2022-06-17 00:00 amitriptyline All 2022-06-17 00:00 levothyroxine All 2022-06-17 00:00 sumatriptan succinate All 2022-06-17 00:00 sumatriptan succinate All 2022-06-17 00:00 epinephrine All 2022-06-17 00:00 amlodipine All 2022-06-17 00:00 topiramate All 2022-06-17 00:00 montelukast All 2022-06-17 00:00 amlodipine All 2022-06-17 00:00 amlodipine All 2022-06-17 00:00 famotidine All 2022-06-17 00:00 levothyroxine All 2022-06-17 00:00 loratadine All 2022-06-17 00:00 amlodipine All 2022-06-17 00:00 famotidine All 2022-06-17 00:00 loratadine All 2022-06-17 00:00 pantoprazole All 2022-06-17 00:00 amlodipine All 2022-06-17 00:00 amlodipine All 2022-06-17 00:00 epinephrine All 2022-06-17 00:00 loratadine All 2022-06-17 00:00 vaghpvplzn-zonmjhm-ltjutork All 2022-06-17 00:00 albuterol sulfate All 2022-06-17 00:00 montelukast All 2022-06-17 00:00 albuterol sulfate All 2022-06-17 00:00 sumatriptan succinate All 2022-06-17 00:00 topiramate All 2022-06-17 00:00 famotidine All 2022-06-17 00:00 pantoprazole All 2022-06-17 00:00 epinephrine All 2022-06-17 00:00 montelukast All 2022-06-17 00:00 amitriptyline All 2022-06-17 00:00 amlodipine All 2022-06-17 00:00 amlodipine All 2022-06-17 00:00 loratadine All 2022-06-17 00:00 pantoprazole All 2022-06-17 00:00 pantoprazole All 2022-06-17 00:00 montelukast All 2022-06-17 00:00 albuterol sulfate All 2022-06-17 00:00 sumatriptan succinate All 2022-06-17 00:00 topiramate All 2022-06-17 00:00 topiramate All 2022-06-17 00:00 epinephrine All 2022-06-17 00:00 albuterol sulfate All 2022-06-17 00:00 amitriptyline All 2022-06-17 00:00 levothyroxine All 2022-06-17 00:00 sumatriptan succinate All Problems date description facility 2022-06-17 00:00 Abdominal pain, right lower quadrant A ll 2022-06-17 00:00 Right lower quadrant pain All Procedures date description facility 2022-06-17 00:00 Visit Code Hold All 2022-06-17 00:00 POC URINALYSIS DIP All Results/Labs test date author facility value unit interpret ation Result panel 1 (unknown) (no date) (unknown) All (no value) (units unknown ) (unknown) Result panel 2 (unknown) (no date) (unknown) All (no value) (units unknown ) (unknown) Result panel 3 (unknown) (no date) (unknown) All (no value) (units unknown ) (unknown) Result panel 4 (unknown) (no date) (unknown) All (no value) (units unknown ) (unknown) Result panel 5 (unknown) (no date) (unknown) All (no value) (units unknown ) (unknown) Result panel 6 (unknown) (no date) (unknown) All (no value) (units unknown ) (unknown) Result panel 7 (unknown) (no date) (unknown) All (no value) (units unknown ) (unknown) Result panel 8 (unknown) (no date) (unknown) All (no value) (units unknown ) (unknown) Result panel 9 (unknown) (no date) (unknown) All (no value) (units unknown ) (unknown) Result panel 10 (unknown) (no date) (unknown) All (no value) (units unknown ) (unknown) Result panel 11 (unknown) (no date) (unknown) All (no value) (units unknown ) (unknown) Result panel 12 (unknown) (no date) (unknown) All (no value) (units unknown ) (unknown) Social History No information. Vital Signs date measurement value units 2022-06-17 00:00 BMI 23.68 kg/m2 2022-06-17 00:00 BP_diastolic 92 mmHg 2022-06-17 00:00 BP_systolic 152 mmHg 2022-06-17 00:00 heart_rate 88 /min 2022-06-17 00:00 height_metric 165.1 cm 2022-06-17 00:00 height_standard 65 in 2022-06-17 00:00 respiration_rate 19 /min 2022-06-17 00:00 temperature_metric 36.83 C 2022-06-17 00:00 temperature_standard 98.3 F 2022-06-17 00:00 weight_metric 64.32 kg 2022-06-17 00:00 weight_standard 141.8 lb
[2022-06-17 14:57] LABS: BASOPHILS % (AUTO) 0.4 %; EOSINOPHILS # (AUTO) 0.4 10^3/uL (0.0-0.7); EOSINOPHILS % (AUTO) 3.7 %; HGB - HEMOGLOBIN 11.9 g/dL (12.0-16.0); LYMPHOCYTES # (AUTO) 1.4 10^3/uL (1.5-3.5); LYMPHOCYTES % (AUTO) 13.9 %; MEAN CORPUSCULAR HEMOGLOBIN 30.7 pg (27.0-31.0); MEAN CORPUSCULAR HGB CONC 32.2 g/dL (32.0-36.0); MEAN CORPUSCULAR VOLUME 95.4 fL (81.0-99.0); MEAN PLATELET VOLUME 9.1 fL (7.9-10.8); MONOCYTES # (AUTO) 0.8 10^3/uL (0.0-1.0); MONOCYTES % (AUTO) 7.5 %; NEUTROPHILS # (AUTO) 7.5 10^3/uL (1.5-6.6); NEUTROPHILS % (AUTO) 74.3 %; PLT - PLATELET COUNT 310 10^3/uL (130-450); RED BLOOD COUNT 3.88 10^6/uL (4.20-5.40); RED CELL DISTRIBUTION WIDTH 13.2 % (12.0-15.0)
[2022-06-17 15:09] LABS: ALBUMIN 4.5 g/dL (3.2-5.5); ALBUMIN/GLOBULIN RATIO 1.1 (1.0-2.2); BILIRUBIN,TOTAL 0.6 mg/dL (0.2-1.0); CALCIUM 9.5 mg/dL (8.5-10.3); POTASSIUM 3.3 mmol/L (3.5-5.0); TOTAL PROTEIN 8.7 g/dL (6.7-8.2)
[2022-06-17 15:09] LABS: BILIRUBIN,URINE NEGATIVE (NEGATIVE); GLUCOSE, URINE (UA) NEGATIVE (NEGATIVE); KETONES,URINE (UA) NEGATIVE (NEGATIVE); LEUKOCYTE ESTERASE, URINE NEGATIVE (NEGATIVE); NITRITE,URINE NEGATIVE (NEGATIVE); OCCULT BLOOD,URINE NEGATIVE (NEGATIVE); PROTEIN,URINE NEGATIVE (NEGATIVE); UROBILINOGEN,URINE 0.2 (NORMAL) E.U./dL (NORMAL)
[2022-06-17] MEDS ORDERED: HYDROmorphone 1 MG/ML CARPUJECT IVP STA (15:10)
--- NOTE | 2022-06-17 15:11 | ED Physician Documentation ---
PD HPI ABD PAIN - Stated complaint Stated Complaint: RT FLANK PX/BACK PX - Chief complaint Chief Complaint: Abd Pain - History obtained from History obtained from: Patient - Additional information Additional information: 71-year-old woman with history of remote appendectomy, hysterectomy and C- sections presents with 3 days of constant right side abdominal pain radiating to the back. Nothing makes it better or worse. She has not tried any pain medication at home. This is never happened before. No nausea. No urinary complaints. On the first day she did have diarrhea. 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 : None Psych: None Musculoskeletal: Osteoarthritis Derm: None - Past Surgical History Past Surgical History: Yes General: Hiatal hernia repair Ortho: Carpal Tunnel surgery /CONTRACT PREPARER: section, Hysterectomy - Present Medications Home Medications: Ambulatory Orders Medication Instructions Recorded Confirmed Topiramate 100 mg PO BID 10/26/13 08/06/19 Sumatriptan Inj [Imitrex Inj] 6 mg INJ DAILY PRN 06/12/14 08/06/19 Albuterol Sulf [Ventolin Hfa 1 - 2 puffs INH Q4HR PRN 02/12/18 08/06/19 Inhaler] Amitriptyline HCl 100 mg PO QPM 02/12/18 08/06/19 Atorvastatin Calcium 20 mg PO DAILY 02/12/18 08/06/19 EPINEPHrine [Epipen 2-Haroon] 0.3 mg IM PRN PRN 02/12/18 08/06/19 Metoprolol Tartrate 50 mg PO BID 02/12/18 08/06/19 Pantoprazole [Protonix] 40 mg PO DAILY 02/12/18 08/06/19 amLODIPine [Norvasc] 5 mg PO DAILY 02/12/18 08/06/19 Clindamycin HCl [Clindamycin 300MG 300 mg PO Q6H #40 capsule 08/05/19 08/06/19 CAP] Ascorbic Acid [Vitamin C] 500 mg PO DAILY 08/06/19 08/06/19 Butalb/Acetaminophen/Caffeine 1 tab PO DAILY PRN 08/06/19 08/06/19 [Vycdqs-Ivnigcfo-Hbet 50-325-40] Calcium Carbonate 500 mg PO DAILY 08/06/19 08/06/19 Cyanocobalamin (Vitamin B-12) 3,000 mcg PO DAILY 08/06/19 08/06/19 [Vitamin B-12] Famotidine 20 mg PO BID 08/06/19 08/06/19 Folic Acid 0.4 mg PO DAILY 08/06/19 08/06/19 Levothyroxine [Synthroid] 12.5 mcg PO DAILY 08/06/19 08/06/19 Multivitamin [Theragran] 1 tab PO DAILY 08/06/19 08/06/19 Ciprofloxacin HCl 750 mg PO BID #14 tablet 08/09/19 Hydrocodone/Acetaminophen 1 each PO Q6H PRN #10 tablet 08/09/19 [Hydrocodone-Acetamin 5-325 mg] Benzonatate [Tessalon] 100 mg PO TID PRN #30 cap 03/18/21 Fluticasone/Salmeterol [Advair Hfa 8 gm IH DAILY #1 inhaler 03/18/21 115-21 Mcg Inhaler] predniSONE [Deltasone] 40 mg PO DAILY 4 Days #8 tablet 03/18/21 HYDROcod/ACETAM 5/325 [[place] 5/325] 1 - 2 tab PO Q6H PRN #15 tablet 06/17/22 - Allergies Allergies/Adverse Reactions: Allergies Allergy/AdvReac Type Severity Reaction Status Date / Time cefuroxime axetil * Allergy Severe Hives Verified 03/18/21 15:16 [From Ceftin] ibuprofen [From Motrin] Allergy Severe Hives Verified 03/18/21 15:16 Penicillins Allergy Severe Hives Verified 03/18/21 15:16 losartan potassium * Allergy Intermediate Rash Verified 03/18/21 15:16 [From Cozaar] avocado Allergy Unknown Verified 03/18/21 15:16 cashew nut Allergy Unknown Verified 03/18/21 15:16 desipramine Allergy Hives Verified 03/18/21 15:16 hazelnut Allergy Unknown Verified 03/18/21 15:16 indomethacin Allergy Hives Verified 03/18/21 15:16 losartan [From Cozaar] Allergy Hives Verified 03/18/21 15:16 pecan nut Allergy Unknown Verified 03/18/21 15:16 sesame oil Allergy Anaphylaxis Verified 03/18/21 15:16 sesame seed Allergy Anaphylaxis Verified 03/18/21 15:16 bupropion HCl * AdvReac Severe Anxiety Verified 03/18/21 15:16 [From Wellbutrin] - Social History Does the pt smoke?: No Smoking Status: Never smoker Does the pt drink ETOH?: Yes Does the pt have substance abuse?: No - Immunizations Immunizations are current?: Yes - POLST Patient has POLST: No POLST Status: Full Code PD ED PE NORMAL - Vitals Vital signs reviewed: Yes - General General: Alert and oriented X 3, No acute distress - Cardiac Cardiac: RRR, No murmur - Respiratory Respiratory: No respiratory distress, Clear bilaterally - Abdomen Abdomen: Normal bowel sounds, Soft, Non tender - Back Back: No CVA TTP, No spinal TTP - Derm Derm: Normal color, Warm and dry - Extremities Extremities: No edema, No calf tenderness / cord - Neuro Neuro: Alert and oriented X 3, Normal speech Results - Vitals Vitals: Vital Signs - 24 hr 06/17/22 06/17/22 14:33 16:21 Temperature 36.8 C Heart Rate 86 85 Respiratory 16 18 Rate Blood Pressure 130/81 H 158/87 H O2 Saturation 100 99 Oxygen O2 Source Room air - Labs Labs: Laboratory Tests 06/17/22 06/17/22 06/17/22 14:40 14:50 14:50 WBC 10.0 RBC 3.88 L Hgb 11.9 L Hct 37.0 MCV 95.4 MCH 30.7 MCHC 32.2 RDW 13.2 Plt Count 310 MPV 9.1 Neut # (Auto) 7.5 H Lymph # (Auto) 1.4 L [place] # (Auto) 0.8 Eos # (Auto) 0.4 Baso # (Auto) 0.0 Absolute Nucleated RBC 0.00 Nucleated RBC % 0.0 Sodium 137 Potassium 3.3 L Chloride 104 Carbon Dioxide 24 Anion Gap 9.0 BUN 20 Creatinine 1.0 Estimated GFR (MDRD) 55 L Glucose 85 Calcium 9.5 Total Bilirubin 0.6 AST 20 ALT 21 Alkaline Phosphatase 113 Total Protein 8.7 H Albumin 4.5 Globulin 4.2 Albumin/Globulin Ratio 1.1 Lipase 31 Urine Color YELLOW Urine Clarity CLEAR Urine pH 6.0 Ur Specific [place] 1.015 Urine Protein NEGATIVE Urine Glucose (UA) NEGATIVE Urine Ketones NEGATIVE Urine Occult Blood NEGATIVE Urine Nitrite NEGATIVE Urine Bilirubin NEGATIVE Urine Urobilinogen 0.2 (NORMAL) Ur Leukocyte Esterase NEGATIVE Ur Microscopic Review NOT INDICATED Urine Culture Comments NOT INDICATED PD Medical Decision Making - ED course ED course: This is a giacomo 71-year-old woman who presents accompanied by her for the evaluation of 3 days of right-sided abdominal pain with benign examination. Supposition was most likely renal colic, but CT showing borderline dilatation of the pancreatic duct. Discussed with patient and need for follow-up for GI consultation and ER or MRCP. Departure - Departure Disposition: Home, Self Care Clinical Impression: Abdominal pain Qualifiers: Abdominal location: right upper quadrant Qualified Code(s): R10.11 - Right upper quadrant pain Condition: Good Record reviewed to determine appropriate education?: Yes Instructions: ED Abdominal Pain Female Non-Specific Abdominal Pain Prescriptions: HYDROcod/ACETAM 5/325 [[place] 5/325] 1 - 2 tab PO Q6H PRN #15 tablet PRN Reason: Pain Comments: As discussed, work-up today demonstrates normal labs, and a CT showed borderline dilatation of the pancreatic duct. This is a finding that necessitates follow- up with your primary care physician for GI referral or MRCP or both. I sent your prescription electronically to [facility] in [place]. Call your doctor to arrange a follow-up appointment, make the next available appointment. In the interim, return anytime if worse or if new symptoms develop. I am prescribing a short course of narcotic pain medication for you. These are potentially dangerous and addictive medications that should be used carefully. These medications may constipate you. Take an zusl-fqn-[id number] stool softener (docusate) twice daily with plenty of water while taking these medications. If you go 24 hours without a bowel movement, take srgg-toy-[id number] miralax, per package instructions. Do not drink or drive while taking these medications. If you received narcotic or sedating medications while in the emergency department, do not drive for 24 hours. Store this medication in a safe, secure place and out of reach of children. It is a violation of federal law to give or sell this medication to another person or to use in a manner other than prescribed. The ED will not refill narcotic prescriptions, including prescriptions lost or stolen. To dispose of unwanted medications: 1. [facility] at [address] in [place] has a medication drop box. They accept prescription medications (in pill form) Tuesday through Tuesday 9:00 a.m. to 5:00 p.m. 2. The [facility] accepts prescription medications (in pill form only) for disposal year round. Call for more information. 3. Contact the [facility] for the next [facility] sponsored prescription drug collection event. , [phone], or [phone]; Note that many narcotic pain relievers also contain Tylenol/acetaminophen. Please ensure that your total dose of acetaminophen from all sources does not exceed 3 g (3000 mg) per day.
[2022-06-17 15:14] LABS: CLARITY,URINE CLEAR (CLEAR)
[2022-06-17] MEDS ORDERED: iohexoL-300 100 ML VIAL ONE (15:39)
[2022-06-17] MEDS ORDERED: iohexoL-300 100 ML VIAL IVP ONE (16:26)
--- NOTE | 2022-06-17 16:58 | CT Report ---
PROCEDURE: ABDOMEN/PELVIS W INDICATIONS: Right upper quadrant pain. CONTRAST: 100ml Omnipaque 300 TECHNIQUE: After the administration of intravenous contrast, 5 mm thick sections acquired from the diaphragms to the symphysis. 5 mm thick coronal and sagittal reformats were acquired. For radiation dose reducti on, the following was used: automated exposure control, adjustment of mA and/or kV according to rishi ent size. COMPARISON: None. FINDINGS: Image quality: Excellent. Images are denoted as (series #/image #). Visualized lung bases: No pleural effusion. Bilateral breast implants, partially imaged. Elevation of the right hemidiaphragm. Liver and biliary tree: No suspect focal hepatic lesion. No biliary ductal dilation. Gallbladder: No radiopaque cholelithiasis. Spleen: Unremarkable. Pancreas: No evidence of acute pancreatitis or peripancreatic fluid collection. Minimal/borderline di lation of the main pancreatic duct at the pancreatic head measuring 4 mm, to the level of the ampulla . Adrenal glands: Unremarkable. Kidneys and ureters: No hydronephrosis. Gastrointestinal tract: No bowel obstruction. Mild predominantly sigmoid colonic diverticulosis witho ut evidence of acute diverticulitis. No evidence of acute appendicitis. Peritoneal cavity: No free air or free fluid. Bladder: Unremarkable. Pelvic organs: The uterus is not visualized and is presumed surgically absent. Vasculature: No abdominal aortic aneurysm. Lymph nodes: No highly suspicious lymph nodes visualized. Musculoskeletal: Degenerative change of the spine. IMPRESSION: 1. No acute appearing abnormality identified within the abdomen or pelvis. 2. Minimal/borderline dilation of the main pancreatic duct at the pancreatic head, to the level of th e ampulla without an obstructing lesion identified. This is a nonspecific finding, could potentially represent senescent change or postinflammatory residua but other etiologies including an occult ampul brandin lesion, papillary stenosis, or sphincter of Oddi dysfunction are also possible. Gastroenterology consultation may be helpful to direct further management. Reviewed by: Sidney Matt MD on 06/17/2022 4:56 PM PST Approved by: Sidney Matt MD on 06/17/2022 4:56 PM PST Station ID: [id number]
[2022-06-17 17:33] VITALS: BP 140/80
== END 2022-06-17 17:46 | disposition home or self-care (01) ==
LOC: ED 14:13
DX: R10.11 Right upper quadrant pain (principal)
CPT/HCPCS: 36415; 74177; 80053; 81003; 83690; 85025; 96374; 99284; J1170; Q9967; 81001; 87086

== ENCOUNTER 2022-08-25 12:19 | Outpatient (CLI) | payer MEDICARE, OTHER ==
--- NOTE | 2022-08-26 15:38 | Mammography Report ---
BILATERAL DIGITAL SCREENING MAMMOGRAM 3D/2D WITH AUGMENTATION: 08/25/2022 CLINICAL: Family history of breast cancer. Routine screening. Comparison is made to exams dated: 09/01/2021 mammogram, 08/18/2020 mammogram - [facility], 07/31/2019 mammogram, 04/10/2018 mammogram, and 03/29/2017 mammogram - [facility]. There are scattered areas of fibroglandular density in both breasts (category b / 25%-50% glandular t issue). Bilateral breast implants are intact. No significant masses, calcifications, or other findings are seen in either breast. There has been no significant interval change. IMPRESSION: NEGATIVE There is no mammographic evidence of malignancy. A 1 year screening mammogram is recommended. Based on the Tyrer Cuzick model (a risk assessment model) the patients lifetime risk is 10.0% and he r 10 year risk is 6.9%. According to the ACR, ACS, and NCCN guidelines, an annual breast MRI exam enedelia ng with mammogram is recommended if the patients lifetime risk is 20% or greater. This exam was interpreted at Station ID: [id number]. NOTE: For mammograms, a report in lay terms will be sent to the patient. Approximately 15% of breast malignancies will not be visualized mammographically. In the management of a palpable breast mass, a negative mammogram must not discourage biopsy of a clinically suspicious lesion. Electronically Signed By: Tyrone [email or web address]/[email or web address]:08/25/2022 18:37:08 letter sent: No_Letter ACR BI-RADS Category 1: Negative 3341F PARENCHYMAL PATTERN: (A) - The breast(s) demonstrate(s) scattered fibroglandular densities. BI-RADS CATEGORY: (1) - 1 Mammogram [id number] 1 year screening LATERALITY: (B)
== END 2022-08-25 12:20 | disposition home or self-care (01) ==
LOC: DI.N 12:19
DX: Z12.31 Encounter for screening mammogram for malignant neoplasm of breast (principal); Z80.3 Family history of malignant neoplasm of breast

== ENCOUNTER 2023-04-19 12:27 | Outpatient (CLI) | payer MEDICARE, OTHER ==
--- NOTE | 2023-04-19 15:25 | XRAY Report ---
PROCEDURE: Chest 2 View X-Ray INDICATIONS: BRONCHITIS, ACUTE TECHNIQUE: 2 views of the chest were acquired. COMPARISON: Chest x-ray 03/11/2023 FINDINGS: Surgical changes and devices: None. Lungs and pleura: No pleural effusions or pneumothorax. Lungs are clear. Mediastinum: Mediastinal contours appear normal. Heart size is normal. Bones and chest wall: No suspicious bony lesions. Overlying soft tissues appear unremarkable. IMPRESSION: No acute cardiopulmonary process. Reviewed by: Maliha Dahl MD on 04/19/2023 3:24 PM PDT Approved by: Maliha Dahl MD on 04/19/2023 3:24 PM PDT Station ID: [id number]
== END 2023-04-19 12:28 | disposition home or self-care (01) ==
LOC: DI 12:27
PROVIDERS: ATTEND Family Medicine
DX: J20.9 Acute bronchitis, unspecified (principal)

== ENCOUNTER 2023-08-13 08:00 | Outpatient (CLI) | payer MEDICARE, OTHER ==
[2023-08-13 19:08] LABS: BASOPHILS % (AUTO) 0.7 %; EOSINOPHILS # (AUTO) 0.5 10^3/uL (0.0-0.7); EOSINOPHILS % (AUTO) 8.3 %; HCT - HEMATOCRIT 38.9 % (37.0-47.0); HGB - HEMOGLOBIN 12.7 g/dL (12.0-16.0); LYMPHOCYTES # (AUTO) 1.6 10^3/uL (1.5-3.5); LYMPHOCYTES % (AUTO) 29.3 %; MEAN CORPUSCULAR HGB CONC 32.6 g/dL (32.0-36.0); MEAN CORPUSCULAR VOLUME 94.9 fL (81.0-99.0); MEAN PLATELET VOLUME 10.3 fL (7.9-10.8); MONOCYTES # (AUTO) 0.5 10^3/uL (0.0-1.0); NEUTROPHILS # (AUTO) 2.9 10^3/uL (1.5-6.6); NEUTROPHILS % (AUTO) 52.5 %; PLT - PLATELET COUNT 267 10^3/uL (130-450); WHITE BLOOD COUNT 5.5 x10^3/uL (4.8-10.8)
[2023-08-13 19:25] LABS: ALBUMIN 4.5 g/dL (3.2-5.5); ALBUMIN/GLOBULIN RATIO 1.3 (1.0-2.2); BILIRUBIN,TOTAL 0.3 mg/dL (0.2-1.0); CALCIUM 9.6 mg/dL (8.5-10.3); CREATININE 0.9 mg/dL (0.6-1.3); TOTAL PROTEIN 7.9 g/dL (6.4-8.9)
[2023-08-13 19:40] LABS: THYROID STIMULATING HORMONE 1.21 uIU/mL (0.34-5.60)
== END 2023-08-13 23:59 | disposition home or self-care (01) ==
LOC: LAB.N 08:00
PROVIDERS: ATTEND Family Medicine
DX: R42 Dizziness and giddiness (principal)
CPT/HCPCS: 36415; 80053; 84443; 85025